=== PATIENT | male | born 1940 | race Caucasian/White ===

== ENCOUNTER → 2017-07-23 10:39 | Outpatient (CLI) | payer MEDICARE, OTHER, SELFPAY ==
[2017-07-23 12:54] LABS: Add Manual Diff / Slide Review NO; Basophils Percent Auto 1.7 % (0-2); Eosinophils Percent Auto 2.7 % (2-4); Hematocrit 39.5 % (41-53); Hemoglobin 13.9 g/dL (13.5-17.5); Lymphocytes Percent Auto 43.1 % (25-40); Mean Corpuscular HGB Conc 35.1 % (30-36); Mean Corpuscular Hemoglobin 37.7 PG (26-34); Mean Corpuscular Volume 107.3 fL (80-100); Monocytes Percent Auto 3.8 % (3-14); Neutrophils Absolute Auto 1600 /uL (3000-5900); Neutrophils Percent Auto 48.7 % (50-75); Platelet Count 229 X10^3/uL (150-400); Red Blood Cell Count 3.68 X10^6/uL (4.5-5.9); Red Cell Distribution Width 14.1 % (11.6-14.8); White Blood Cell Count 3.4 X10^3/uL (4.5-11.0)
[2017-07-23 13:26] LABS: Alanine Aminotransferase 32 IU/L (21-72); Albumin 4.6 g/dL (3.5-5.0); Albumin Globulin Ratio 1.6 (1.0-2.8); Alkaline Phosphatase 91 U/L (38-126); Aspartate Aminotransferase 17 IU/L (17-59); BUN Creatinine Ratio 16.4 (6-22); Bilirubin Total 0.8 mg/dL (0.2-1.3); Calcium 9.7 mg/dL (8.4-10.2); Estimated Glomerular Filt Rate 49.4 mL/min (>60); Globulin 2.9 g/dL (1.7-4.1); Glucose 95 mg/dL (80-110); HEMOLYSIS < 15 (0-50); Potassium 5.2 mmol/L (3.4-5.1); Sodium 143 mmol/L (137-145); Total Protein 7.5 g/dL (6.3-8.2)
== END ==
PROVIDERS: Family Provider Internal Medicine; PCP Family Medicine; Visit Provider Nurse Practitioner Gerontology
DX: D47.3 Essential (hemorrhagic) thrombocythemia (principal)
CPT/HCPCS: 36415; 80053; 85025

== ENCOUNTER → 2017-10-06 10:30 | Outpatient (CLI) | payer MEDICARE, OTHER, SELFPAY ==
[2017-10-06 11:20] LABS: Alanine Aminotransferase 48 IU/L (21-72); Albumin Globulin Ratio 1.7 (1.0-2.8); Alkaline Phosphatase 93 U/L (38-126); Aspartate Aminotransferase 25 IU/L (17-59); BUN Creatinine Ratio 17.3 (6-22); Bilirubin Total 0.6 mg/dL (0.2-1.3); Blood Urea Nitrogen 26 mg/dL (9-20); Calcium 9.2 mg/dL (8.4-10.2); Carbon Dioxide 26 mmol/L (22-32); Chloride 108 mmol/L (98-107); Estimated Glomerular Filt Rate 45.6 mL/min (>60); Globulin 2.4 g/dL (1.7-4.1); Glucose 108 mg/dL (80-110); HEMOLYSIS < 15 (0-50); Potassium 4.2 mmol/L (3.4-5.1); Sodium 144 mmol/L (137-145); Total Protein 6.4 g/dL (6.3-8.2)
[2017-10-06 11:31] LABS: Hematocrit 28.2 % (41-53); Mean Corpuscular HGB Conc 35.5 % (30-36); Mean Corpuscular Hemoglobin 39.6 PG (26-34); Mean Corpuscular Volume 111.4 fL (80-100); Platelet Count 75 X10^3/uL (150-400); Red Blood Cell Count 2.53 X10^6/uL (4.5-5.9); Red Cell Distribution Width 15.4 % (11.6-14.8)
[2017-10-06 11:32] LABS: Add Manual Diff / Slide Review YES; White Blood Cell Count 1.3 X10^3/uL (4.5-11.0)
[2017-10-06 12:03] LABS: Macrocytosis 2+; Neutrophils Absolute Manual 182 /uL (3000-5900); Total Cells Counted 50
== END ==
PROVIDERS: Nurse Practitioner Gerontology; Family Provider Internal Medicine; PCP Family Medicine; Visit Provider Internal Medicine Hematology & Oncology
DX: D47.3 Essential (hemorrhagic) thrombocythemia (principal)
CPT/HCPCS: 36415; 80053; 85025

== ENCOUNTER → 2017-10-08 13:49 | Outpatient (CLI) | payer MEDICARE, OTHER, SELFPAY ==
--- NOTE | 2017-10-08 | DI.ECHO.S_ITS ---
[facility] +---------+ : : [address] : : : : [address]. : : : : [place], : : : : [place] [id number] : : : : Phone: [phone] + Replaced by [id number] Echocardiogram Report + + :Name: JERSEY JASMINE Study Date: 10/08/2017 Height: 69 in : :[facility] Exam Location: [facility] Weight: 240 lb : : Gender: Male BSA: 2.2 m2 : :: 1940 Age: 76 yrs BP: 142/80 mmHg: :Reason For Study: Thrombocytopenia : : Performed By: Edith Mackey : :Referring: [email or web address] : + + Interpretation Summary 1) Mildly enlarged left ventricle with normal systolic function (EF about 55%). 2) There is basal posterolateral wall hypokinesis. 3) Normal right ventricular size and function. 4) There is mild to moderate aortic regurgitation. 5) There is mild to moderate mitral regurgitation. 6) The right ventricular systolic pressure is estimated at 25 mmHg assuming a right atrial pressure of 3 mm Hg. 7) The aortic root is mildly dilated at 4.3cm and the ascending aorta is mildly enlarged at 4.2cm. 8) Compared to the Echo done 10/23/2016, no significant change when compared visually. Procedure: A two-dimensional transthoracic echocardiogram with color flow and Doppler was performed. The study quality was technically adequate. Comparison is made with the echocardiogram of 10/23/2016. The patient was in normal sinus rhythm during the exam. Left Ventricle: The left ventricle is mildly dilated. Left ventricular wall thickness is mildly increased. Left ventricular ejection fraction is estimated to be 55 +/- 5%. There is basal posterolateral wall hypokinesis. Right Ventricle: The right ventricle is normal in size and function. Atria: The left atrium is severely dilated. The right atrium is mild to moderately dilated. The interatrial septum is intact with no evidence for an atrial septal defect. Mitral Valve: The mitral valve is normal in structure and function. There is mild to moderate mitral regurgitation. Aortic Valve: The aortic valve is trileaflet. The aortic valve opens well. There is mild to moderate aortic regurgitation. There is an eccentric jet of aortic insufficiency directed against the anterior mitral leaflet. Tricuspid Valve: The tricuspid valve leaflets are thin and pliable. There is mild tricuspid regurgitation. The right ventricular systolic pressure is estimated at 25 mmHg assuming a right atrial pressure of 3 mm Hg. Pulmonic Valve: The pulmonic valve is not well seen, but is grossly normal. There is a trace or physiologic amount of pulmonic regurgitation. Great Vessels: The aortic root is mildly dilated. The ascending aorta is mildly enlarged. The aortic arch is mildly enlarged. The IVC is of normal diameter and collapses greater than 50% with a sniff. This suggests a low right atrial pressure of 3 mm Hg. Pericardium/ Pleura There is no pericardial effusion. There is an anterior echo-free space consistent with a fat pad. There is no pleural effusion. MMode/2D Measurements & Calculations LVIDd: 6.0 cm AoV Openin.2 cm LVIDs: 3.9 cm LVOT diam: 2.7 cm IVSd: 0.91 cm Ao root diam: 4.3 cm LVPWd: 1.3 cm asc Aorta Diam: 4.2 cm LV galvin. diameter/BSA (cm/m^2): 2.7 Ao Arch Diam (Prox Trans): 3.8 cm LV sys. diameter/BSA (cm/m^2): 1.8 FS: 34.5 % EPSS: 2.1 cm LA A2 area: 35.1 cm2 RA long axis: 5.2 cm LA A4 area: 34.3 cm2 RA area: 14.7 cm2 LA length (vol): 7.1 cm RA vol: 35.3 ml LA vol: 143.9 ml RA : 15.8 ml/m2 LA vol index: 64.5 ml/m2 TAPSE: 2.4 cm Doppler Measurements & Calculations Ao V2 max: 108.8 cm/sec MV E max ezio: 54.7 cm/sec Ao V2 mean: 75.0 cm/sec MV A max ezio: 55.1 cm/sec Ao V2 VTI: 23.1 cm MV E/A: 0.99 Ao max P.9 mmHg Med Peak E' Ezio: 6.1 cm/sec Ao mean P.5 mmHg E/E' med: 9.0 Lat Peak E' Ezio: 9.2 cm/sec E/E' lat: 6.0 E/e' average: 7.5 MV dec time: 0.27 sec TR max ezio: 236.3 cm/sec TR max P.3 mmHg PA V2 max: 71.0 cm/sec PA V2 mean: 42.5 cm/sec PA mean P.88 mmHg PA pr(Accel): 24.1 mmHg Reading Physician:05:05 PM
== END ==
PROVIDERS: PCP Family Medicine; Visit Provider Internal Medicine Hematology & Oncology
DX: I08.3 Combined rheumatic disorders of mitral, aortic and tricuspid valves (principal); D69.6 Thrombocytopenia, unspecified
CPT/HCPCS: 93306

== ENCOUNTER → 2017-10-13 10:52 | Outpatient (CLI) | payer MEDICARE, OTHER, SELFPAY ==
[2017-10-13 11:35] LABS: Hemoglobin 11.4 g/dL (13.5-17.5); Mean Corpuscular HGB Conc 35.7 % (30-36); Mean Corpuscular Hemoglobin 39.6 PG (26-34); Mean Corpuscular Volume 110.9 fL (80-100); Platelet Count 65 X10^3/uL (150-400); Red Blood Cell Count 2.89 X10^6/uL (4.5-5.9); Red Cell Distribution Width 15.4 % (11.6-14.8)
[2017-10-13 11:39] LABS: White Blood Cell Count 1.7 X10^3/uL (4.5-11.0)
[2017-10-13 11:43] LABS: HEMOLYSIS < 15 (0-50); Iron 237 ug/dL (49-181)
[2017-10-13 11:54] LABS: Percent Iron Saturation 77 % (20-50); Total Iron Binding Capacity 307 ug/dL (261-462); Transferrin 238 mg/dL (206-381)
[2017-10-13 12:11] LABS: Macrocytosis 2+; Neutrophils Absolute Manual 136 /uL (3000-5900); Total Cells Counted 50
[2017-10-13 12:49] LABS: Folate 19.8 ng/mL (2.76-20.0); Vitamin B12 > 1000 pg/mL (239-931)
--- NOTE | 2017-10-26 13:41 | ONC.NAV ---
Description: Disabled Parking Permit Activity: Completed a disabled parking permit for pt, Nuria Hubbard signed. Will send to pt in the mail.
--- NOTE | 2017-12-22 14:54 | ONC.NAV ---
*Sent bereavement card.
== END ==
PROVIDERS: Family Provider Internal Medicine; PCP Family Medicine; Visit Provider Family Medicine
DX: D53.9 Nutritional anemia, unspecified (principal); R53.83 Other fatigue
CPT/HCPCS: 36415; 82607; 82746; 83540; 83550; 84443; 85025

== ENCOUNTER → 2017-11-05 12:09 | Outpatient (CLI) | payer MEDICARE, OTHER, SELFPAY ==
--- NOTE | 2017-11-05 12:11 | DI.RAD.S_ITS ---
PROCEDURE: IR PICC W FLUORO GUIDE INDICATIONS: PICC LINE COMPARISON: None. FINDINGS: PICC was placed by the intravenous therapy team from the left side. Fluoroscopic spot film demonstrates tip of PICC in the distal SVC. IMPRESSION: Tip of PICC lies within the distal SVC. Dictated by: Carlos Manuel Mosley M.D. on 11/05/2017 at 13:45 Approved by: Carlos Manuel Mosley M.D. on 11/05/2017 at 13:46
== END ==
PROVIDERS: Family Provider Internal Medicine; PCP Family Medicine; Visit Provider Internal Medicine Hematology & Oncology
DX: Z45.2 Encounter for adjustment and management of vascular access device (principal)
CPT/HCPCS: 36569; 77001

== ENCOUNTER 2017-11-22 11:00 | Oncology outpatient (ONC) | payer MEDICARE, OTHER, SELFPAY ==
[2017-07-28 14:49] VITALS: BP 116/67; PULSE 61; RESP 18; TEMP 36; O2SAT 99
--- NOTE | 2017-07-28 15:36 | ONC.APRN.PN ---
Assessment and Plan (1) Essential thrombocythemia Onset Date: 12/03/15 Current visit: No Status: None 07/28/17 15:43 Trenton is a 76-year-old male who we follow in this clinic for essential thrombocytosis, CARINA 2 positive. Platelets have been quite stable over the last year or so on hydroxyurea 500 mg once daily. Platelets today 229. Continue hydroxyurea 500 mg once daily. We may be able to decrease dose. I will have him return in 3 months time to follow up with 1 of our physicians. Also repeat CBC, CMP. He also has history of B12 and folic acid deficiency. He does take supplements. We will also check a B12. In regards to abdominal discomfort this is getting better, he has appt with GI in [place] in a week or so. - Time Spent with Patient 35 mins PN -Subjective Interval history: Trenton is a 76-year-old male who carries a diagnosis of essential thrombocytosis, CARINA 2 positive. Platelets have been stable on 500 mg of hydroxyurea daily for the last year or so. He initially presented in 2004 with a platelet count of over 1 million. Trenton presents for routine 3 month follow-up today. He has no new complaints on exam today aside from some abdominal discomfort which she had approximately 1 year ago. No clear diagnosis. He has an upcoming appointment with GI specialist in [place]. He was hospitalized last year with a similar complaints, without clear etiology. No exam today aside from abd discomfort he reports overall feeling fine. He had some constipation however that resolved with prune juice now having normal BM's the last few days. No blood in stool. No headaches, no change in appetite specifically early satiety. Activity tolerance is unchanged. No skin changes, lesions. No nausea. Still taking hydroxy urea 500 mg once daily. Past Medical History The patient's past medical history is significant for: 1. Essential thrombocytosis: 2004. Original diagnostic workup and treatment while a resident of [facility]. Patient had been on anagrelide 1 mg daily since 2004. Subsequently transferred care on 10/02/2014 to [facility]. Diagnosis: 10/03/2014. Peripheral blood confirming JAK2 mutation. 10/09/2014. Bone marrow biopsy with aspirate. Hypercellular marrow at 75% with megakaryocyte hyperplasia. No microscopic findings to suggest dysplasia. 1+ fibrosis also noted. No evidence of CML based on BCR-ABL. PCR assay on October 03, 2014, which was also negative. No evidence of polycythemia vera based on the patient's normal hemoglobin and hematocrit. In addition, the patient's MDS FISH panel was negative. Karyotype was normal. Treatment: 2004 - September 2014. Anagrelide 1 mg daily. September 2014 -present. Hydrea thousand milligrams twice a day 2. Anemia, likely due to B12 and folic acid deficiency with levels checked on October 02, 2014, showing a B12 of 387 and a folic acid of 6.8, all within the low normal range. She does drink recreationally. Patient will start B12 and folic acid supplements over the counter. 3. 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 Left ventricle and atrium were markedly dilated. Right ventricular systolic pressure otherwise normal at 27 mmHg. Moderate mitral valve regurgitation was reported. 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 5. Hypercholesterolemia. 6. Hypertension. 7. Chronic renal insufficiency, likely due to long-standing hypertension, with his most recent urinalysis on October 03, 2014, showing no evidence of protein or microscopic abnormalities. Results - Imaging Additional studies: Procedures Non-invasive mechanical ventilation (08/22/14) Home Medications and Allergies Home Medications Medication Instructions Recorded Confirmed Type folic acid 0.4 mg PO QDAY #0 12/03/15 History acetaminophen 650 mg PO Q8HP #0 10/07/16 History aspirin 81 mg PO QDAY #0 10/08/16 History fluticasone 1 spray INTRANASAL QDAY #48 gm 10/26/16 Rx atorvastatin [Lipitor] 40 mg PO HS #90 tab 01/12/17 Rx carvedilol [Coreg] 25 mg PO BID #180 tab 04/16/17 Rx hydroxyurea [Hydrea] 500 mg PO Q DAY #90 cap 05/04/17 Rx furosemide 20 mg PO Q DAY #90 tab 06/10/17 Rx amlodipine 10 mg tablet 10 mg PO QDAY #90 tab 07/08/17 Rx clonazepam 1 mg tablet 1 mg PO HS #90 tab 07/08/17 Rx Allergies Allergy/AdvReac Type Severity Reaction Status Date / Time oxycodone [OXYCODONE] Allergy Unknown HALLUCINATI Unverified 06/09/17 12:26 ONS tramadol [TRAMADOL] Allergy Unknown Unverified 06/09/17 12:26 Exam Vital signs: Last Vital Signs Temp 96.8 F L 07/28/17 14:49 Pulse 61 07/28/17 14:49 Resp 18 07/28/17 14:49 BP 116/67 07/28/17 14:49 Pulse Ox 99 07/28/17 14:49 Narrative: well appearing, non toxic appearing - Constitutional positive no acute distress - Routine HEENT Exam Head: Present: normocephalic ENT: Present: mucous membranes moist - Routine Neck Exam Present: supple. Absent: lymphadenopathy - Routine Respiratory Exam Present: Clear to auscultation bilaterally - Routine Cardiovascular Exam Present: RRR - Routine Abdominal Exam Present: soft, normoactive bowel sounds. Absent: tenderness, distended, rebound, guarding, organomegaly, mass Palpation/Percussion: Absent: hepatomegaly, splenomegaly, fluid waves - Routine Extremities Exam Absent: clubbing, edema, calf tenderness - Routine Skin Exam Present: intact, normal turgor. Absent: cyanosis, petechiae - Routine Neurological Exam Present: alert, oriented X3
[2017-10-07 11:59] VITALS: BP 118/64; PULSE 66; RESP 15; TEMP 36.7; O2SAT 98
--- NOTE | 2017-10-07 12:32 | ONC.PN ---
Assessment and Plan (1) Pancytopenia Problem details: Patient reported that he has no prior history of low blood counts. However, his white cell count from yesterday was 1.3, the hemoglobin level 10.0 and platelet count 75. Patient's absolute neutrophil count 1.82. Clinically no evidence of infection. Current visit: Yes Status: Chronic 10/07/17 12:36 I had a long discussion with the patient and patient's . I talked with him that there are variety of different etiologies for pancytopenia. The most common is new medication. Patient and patient's both said that he has not taken any new medications either prescription or over the counter. Next I talked with them that the possibility of evolvement of his underlying essential thrombocytosis. I explained to them that essential thrombocytosis with time sometimes can evolve into myelofibrosis or acute leukemia. I talked with them that I will have him come back next week and we will repeat the CBC. If it is persistently low, I will proceed with bone marrow aspiration and biopsy. I will see the patient after the bone marrow aspiration and biopsy results are available. Meanwhile I highly recommend that we hold the treatment with Hydrea. 10/07/17 18:13 (2) Essential thrombocythemia Onset Date: 12/03/15 Current visit: No Status: Chronic 10/07/17 12:38 At present, the patient is taking Hydrea 500 mg once a day. Patient has tolerated well. However patient has developed relatively new onset of pancytopenia. Since he has been on 500 mg once a day for such a long time, I am doubtful that the new development of pancytopenia is related the use of the Hydrea. However I would recommend that we hold the Hydrea for now until after the evaluation with bone marrow aspiration and biopsy. 10/07/17 18:16 (3) Shortness of breath on exertion Current visit: Yes Status: Chronic 10/07/17 12:40 As far as the shortness of breath is concerned, he has a history of cardiomyopathy. His hemoglobin level is 10.0 which cannot fully account for the clinical symptoms. I am highly suspicious that he might have cardiac issues especially congestive heart failure. Patient actually has a past medical history of flash pulmonary edema. On my physical examination patient's lung sounds clear to me today. I will proceed with the echocardiogram to evaluate the cardiac function. I will ask the patient to try to get to his grain unloader machine as early as possible. 10/07/17 18:17 PN -Subjective Interval history: Interim event patient came in here today accompanied by his . The patient reported significant exertional shortness of breath. He said he is fine when he is sedentary and he is not moving around. According to his , even on a gradual slope, he is having problems. His energy level has been low. Patient denies any bleeding events. He denies chest pain. He denies nausea or vomiting. He reports decreasing appetite during the interim, but his weight actually is going up. Patient reports no skin ulcers and no skin changes. Patient recalled that about a year ago patient had a rectal bleeding and he underwent colonoscopy as well as endoscopy. No active bleeding sites were identified. Patient does recall that he has diverticulosis. Patient has past medical problems including arthritis, chronic kidney disease stage 3 from use of naproxen, cardiomyopathy likely from the viral infection as well as hypertension and hyperlipidemia. Patient has not had any cardiac workup for almost a year. His grain unloader machine has left the area. Patient also has not had any bone marrow examination for more than a year. - Patient Self-Reported Symptoms SR Constitution: Fatigue/Malaise SR respiratory issues: Shortness of breath SR Cardiovascular issues: Shortness of breath with activity or lying flat, Extreme swelling, Dizzy/lightheaded Results - Imaging Additional studies: Procedures Non-invasive mechanical ventilation (08/22/14) Home Medications and Allergies Home Medications Medication Instructions Recorded Confirmed Type folic acid 0.4 mg PO QDAY #0 12/03/15 10/07/17 History acetaminophen 650 mg PO Q8HP #0 10/07/16 10/07/17 History aspirin 81 mg PO QDAY #0 10/08/16 10/07/17 History fluticasone 1 spray INTRANASAL QDAY #48 gm 10/26/16 10/07/17 Rx furosemide 20 mg PO Q DAY #90 tab 06/10/17 10/07/17 Rx amlodipine 10 mg tablet 10 mg PO QDAY #90 tab 07/08/17 10/07/17 Rx clonazepam 1 mg tablet 1 mg PO HS #90 tab 07/08/17 10/07/17 Rx hydroxyurea 500 mg capsule 500 mg PO Q DAY #90 cap 08/24/17 10/07/17 Rx atorvastatin [Lipitor] 40 mg PO HS #90 tab 09/07/17 10/07/17 Rx carvedilol [Coreg] 25 mg PO BID #180 tab 10/04/17 10/07/17 Rx Allergies Allergy/AdvReac Type Severity Reaction Status Date / Time oxycodone [OXYCODONE] Allergy Unknown HALLUCINATI Verified 08/24/17 08:52 ONS tramadol [TRAMADOL] Allergy Unknown Verified 08/24/17 08:52 Exam Vital signs: Last Vital Signs Temp 98.1 F 10/07/17 11:59 Pulse 66 10/07/17 11:59 Resp 15 10/07/17 11:59 BP 118/64 10/07/17 11:59 Pulse Ox 98 10/07/17 11:59 General patient is slightly obese, accompanied by his to the clinic, pleasant and cooperative. HEENT normocephalic atraumatic. Anicteric sclera. Extraocular muscle movement intact. Pupils are round equal and reactive to light and accommodations. Neck supple no palpable lymphadenopathy no palpable thyromegaly. Respiratory: clear o auscultation no wheezes. No crackles on today's examination. Cardiovascular: Regular rate and rhythm on examination. There is a opening clinic. No murmurs gallops or rubs. Abdomen: Soft, nontender, no palpable hepatomegaly, no palpable splenomegaly. Lower extremities: No pitting edema on examination today Neurologic exam: Patient is awake and alert and oriented x3 colon, nonfocal on examination Narrative: General: Patient appears slightly obese, not in any acute respiratory distress, he is pleasant and cooperative. HEENT: Normocephalic, atraumatic, anicteric sclera, EOMI, pupils are round equal and reactive light and accommodations. Neck: Supple, no palpable adenopathy, no palpable thyromegaly. Respiratory: Clear to auscultation, no wheezes. Cardiovascular: Regular rate and rhythm, S1-S2 normal, no murmurs, gallops, or rubs. Abdomen: Soft, nontender, no palpable organomegaly. Lower extremities: No appreciated pitting edema. Neurological exam: Patient is awake and alert and oriented x3, nonfocal on my examination.
--- NOTE | 2017-10-11 | PATH_ITS ---
[facility] Accession Number: [id number] . 01 Material submitted: . PART A: BONE MARROW BIOPSY AND ASPIRATION PART B: BONE MARROW BIOPSY AND ASPIRATION PART C: BONE MARROW BIOPSY AND ASPIRATION . 01 Clinical history: . Patient with history of essential thrombocythemia (ET) with hydrea therapy; now with pancytopenia . 01 Diagnosis: BONE MARROW, CORE BIOPSY, ASPIRATE, AND CLOT SECTIONS: 1. Hypercellular marrow for age (average 70% cellular) with involvement by acute monocytic leukemia (see Comments) 2. No significant marrow reticulin fibrosis (MF 0 out of 3) 3. Thinned bony trabeculae, suggestive of osteopenia . PERIPHERAL BLOOD: 1. Marked absolute neutropenia with 7% circulating blasts and 0.5% circulating promonocytes 2. Moderate thrombocytopenia 3. Mild macrocytic anemia . FLOW CYTOMETRIC ANALYSIS ([id number]): Bone marrow, aspirate: 1. 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 No abnormal B-cell or T-cell population identified . 10/19/2017 . 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 Based on immunohistochemistry performed on the marrow core biopsy (block C1), abnormal myeloid blasts expressing intermediate CD117 and high-level CD33, without CD34, CD15, or CD14, comprise an estimated 45% of the marrow cells; and the abnormal promonocyte population expressing intermediate CD15 and high CD33, without CD34, CD117, or CD14 comprises an additional 35% of the marrow cells. . The AML FISH panel performed on the marrow aspirate is negative for genomic abnormalities with specific probes targeting the PML/PRACHI [t(15;17)], XSZM2T4/RUNX1 (8q21), KMT2A (11q23 or MLL), CBFB, chromosome 5, and chromosome 7 loci. Routine cytogenetic karyotyping also reveals a normal male karyotype in all 20 metaphases analyzed. The complete cytogenetic and FISH results may be referenced in [id number]. Given the molecular information known at this time, the most appropriate AML subclassification of this leukemia would be acute monocytic leukemia. . FLOW CYTOMETRY COMMENTS: . Flow cytometry identifies 40% abnormal myeloid blasts and 39% immature monocytic cells (promonocytes) in this marrow aspirate, which collectively total 79% blast-equivalents. Given the patient's reported history of essential thrombocythemia (ET), this finding is consistent with transformation of the patient's underlying myeloproliferative disorder to an acute myeloid leukemia (AML) with monocytic differentiation, although correlation with the concurrently submitted marrow morphology is also recommended. The abnormal myeloid blasts express intermediate-high CD117, CD13, and CD38; high CD33; variable intermediate-high HLA-DR; low-intermediate CD45; and low to absent CD64; without expression of CD34, CD14, CD15, CD16, or CD11b. The immature monocytic forms/promonocytes express high-level CD64 and CD33; intermediate-high CD38, HLA-DR, CD45, and CD15; and intermediate CD11b; without CD34, CD117, CD14, or CD13. A small subset of more mature monocytic cells are also identified, which express high-level CD64, CD33, and CD11b; and variable intermediate-high CD14; without CD34 or CD117. Only rare mature granulocytes are present in the background. Rare normal CD34+ myeloid blasts are also identified in the background. The immunophenotype of the abnormal myeloid blasts argues against an acute promyelocytic leukemia. As requested, portions of the fresh marrow aspirate will be forwarded for routine cytogenetic karyotyping and an AML FISH panel, the results of which will be reported separately. There is no evidence of involvement by a B-cell or T-cell non-Hodgkin lymphoma. . These findings were discussed with Dr. Margot Heard on 10/12/2017 at 4:45 PM PST. . Flow cytometric analysis after lysis of the erythroid elements indicates that the viable leukocytes include 10% lymphocytes, 7% mature monocytes, 3% granulocytes, 39% promonocytes, 40% abnormal CD117+ myeloid blasts (79% total blast equivalents), and 0.4% normal CD34+ myeloid blasts. The lymphocytes are comprised of 7% B-cells, 87% T-cells, and 6% NK-cells. The mature B-cells have a normal kappa:lambda ratio of 1.5. The T-cells have a normal CD4:CD8 ratio of 1.6. . . 01 Electronically signed: . Annalise Shafer MD, Pathologist NPI- [id number] . 01 Gross description: . Received three formalin-filled containers, each labeled with the patient's name. No sources are labeled on the containers: . A. In a container arbitrarily designated A, the specimen consists of a 3.5 x 2.0 x 2.0 aggregate of clotted blood. The specimen is sectioned and submitted in its entirety in cassettes A1-A9. B. In a container arbitrarily designated B, the specimen consists of approximately a 0.5 cc aggregate of blood, which is filtered and entirely submitted in cassette B. C. In a container arbitrarily designated C, the specimen consists of a 0.3 cm in diameter by 2.0 cm in length portion of core and clotted blood, entirely submitted in cassette C and will be placed in Decal for softening. (DC:[id number]) /FRR . 01 Microscopic: . CORE BIOPSY AND CLOT SECTION: . H/E-stained sections of the bone marrow core biopsy (block C1) reveal an intact, well-sampled core of trabecular bone and marrow with variable cellularity ranging from 15-85%, and an average cellularity estimated at 70%. Many of the bony trabeculae are thinned. The marrow exhibits an atypical expansion of immature cells with round to ovoid nuclei as well as a monotonous population of mononuclear cells with indented and/or convoluted nuclei. These atypical cell populations form confluent sheets in both paratrabecular regions and in the marrow interstitium. Many of the atypical cells have one or more nucleoli. There is evidence of background erythropoiesis and megakaryopoiesis, but maturing myeloid forms are distinctly reduced. Megakaryocytes vary in size and form scattered loose clusters of up to 12 megakaryocytes. Some of the megakaryocytes appear hyperlobate. H/E-stained sections of the clot (blocks A1-A9) reveal abundant blood clot with embedded cellular marrow particles reflective of the cellular portion of the core biopsy. H/E sections of the particle prep (block B1) also contain scattered cellular marrow particles reflective of the core biopsy. No lymphoid aggregates are identified in the core biopsy, but rare small, well-circumscribed lymphoid aggregates are seen in the clot section blocks A5 and A8. . ASPIRATE SMEARS AND TOUCH PREPARATION: . The aspirate smears are pauciparticulate, but adequately cellular for evaluation. One touch preparation of the core biopsy is also received, which is hemodilute and thickly prepared, making visualization of the cells present difficult. The most prominent cell population on the aspirate smears is an abnormal blast population with round nuclei, nucleoli, and a small to moderate amount of cytoplasm. A subset of abnormal immature monocytic forms (promonocytes) is also present. More mature monocytic cells and maturing granulocytic forms are reduced in number. Eosinophilic precursors and rare promyelocytes/myelocytes comprise the majority of granulocytic cells on the smears. The erythroid precursors display complete maturation without significant dysplastic or megaloblastoid features. Many of the megakaryocytes on the aspirate smears exhibit hyperlobate nuclei. Rare dysplastic megakaryocytes with multiple, widely-spaced nuclei are identified. A few immature megakaryocytes are also seen. Lymphocytes and plasma cells are present in normal numbers, and have no significant cytologic atypia. A differential count of 300 marrow hematopoietic cells from the aspirate smears reveals 51% blasts, 18% abnormal immature monocytic forms (promonocytes), 9% maturing myeloid precursors (including eosinophils), 11.7% erythroid precursors, and 10.3% lymphocytes. . SPECIAL STAINS: . A reticulin stain performed on the biopsy (block C1) reveals no significant increase in marrow reticulin fibrosis (WHO fibrosis grade 0 of 3). . The aspirate smear upon which an iron stain was performed is essentially aparticulate; rare sideroblasts are identified, but no ring sideroblasts are identified among the normoblasts present. Iron stains performed on the clot section A1 and the particle prep B1 reveal an adequate amount of stainable marrow storage iron. . IMMUNOHISTOCHEMISTRY*: . Select immunohistochemical studies were performed on the core biopsy (C1), with appropriate positive and negative controls, to help enumerate the cell lineages. An abnormal population of blasts with expression of intermediate-intensity CD117 and strong CD33, without CD34, CD15, or CD14, comprises an estimated 45% of the marrow cells. The CD117+ blasts comprise a majority of the abnormal immature cells in the paratrabecular regions. In addition, an abnormal population of mononuclear cells with expression of intermediate CD15 and strong CD33, without CD34, CD117, or CD14, comprises an additional 35% of the marrow cells, and corresponds to the abnormal immature monocyte (promonocyte) population. A small subset of granulocytic cells with strong expression of CD15 comprises 3-4% of the marrow cells. A small subset of mature monocytes with expression of high-level CD14 also comprises 3-4% of the marrow cells. An immunostain for CD34 highlights marrow vessels, but CD34+ blasts comprise less than 1% of the marrow cells. CD71+ erythroid precursors comprise about 10-15% of the marrow cells. An immunostain for vWF highlights the megakaryocytes. . PERIPHERAL BLOOD: . A Fisher-stained peripheral blood smear reveals the leukocytes to be at least moderately decreased in number, and a differential count of 200 cells reveals 7.5% neutrophils, 81% lymphocytes, 7% blasts, 0.5% abnormal immature monocytic forms (promonocytes), 3% eosinophils, and 1% basophils. Per the CBC indices, the erythrocytes are mildly decreased in number and volume, and macrocytic. There is no significant polychromasia and minimal erythrocyte anisopoikilocytosis, with rare teardrop forms and elliptocytes seen. Platelets are moderately decreased in number, but those present are generally well-granulated. . * Technical note: These tests and their performance characteristics have been determined by [facility]. They have not been cleared or approved by the U.S. Food and Drug Administration. The FDA has determined that such clearance or approval is not necessary. These tests are used for clinical purposes, and should not be regarded as investigational or for research. . Note also that the technical component of the following IHC studies was performed at [email or web address], with interpretation by Dr. Huong Shafer at [facility]: CD33, CD14. . 01 Pathologist provided ICD-10: C95.90, D61.818, Z85.79 . 01 CPT . 387649, 199496, 217287, 774235, 557171, 810130, 600694, [id number], [id number], Q38281 Performed at: [address], [place], [place] [id number] MD Lucien Gar MD Phone: [phone]
[2017-10-11 09:05] LABS: Hemoglobin 11.4 g/dL (13.5-17.5); Mean Corpuscular HGB Conc 35.5 % (30-36); Mean Corpuscular Hemoglobin 39.7 PG (26-34); Mean Corpuscular Volume 111.7 fL (80-100); Platelet Count 71 X10^3/uL (150-400); Red Blood Cell Count 2.86 X10^6/uL (4.5-5.9); Red Cell Distribution Width 15.4 % (11.6-14.8)
[2017-10-11 09:09] LABS: Add Manual Diff / Slide Review YES; White Blood Cell Count 1.6 X10^3/uL (4.5-11.0)
[2017-10-11 09:18] LABS: Alanine Aminotransferase 30 IU/L (21-72); Albumin 4.5 g/dL (3.5-5.0); Albumin Globulin Ratio 1.7 (1.0-2.8); Alkaline Phosphatase 92 U/L (38-126); Aspartate Aminotransferase 16 IU/L (17-59); Bilirubin Total 0.7 mg/dL (0.2-1.3); Blood Urea Nitrogen 27 mg/dL (9-20); Calcium 9.6 mg/dL (8.4-10.2); Carbon Dioxide 29 mmol/L (22-32); Chloride 104 mmol/L (98-107); Estimated Glomerular Filt Rate 45.6 mL/min (>60); Globulin 2.7 g/dL (1.7-4.1); Glucose 128 mg/dL (80-110); HEMOLYSIS < 15 (0-50); Potassium 4.5 mmol/L (3.4-5.1); Sodium 143 mmol/L (137-145); Total Protein 7.2 g/dL (6.3-8.2)
[2017-10-11 09:30] LABS: Neutrophils Absolute Manual 160 /uL (3000-5900); Total Cells Counted 100
[2017-10-11 09:31] LABS: Macrocytosis 2+
--- NOTE | 2017-10-11 10:21 | ONC.PROCEDUR ---
Date of procedure: 10/11/17 Diagnosis: Essential thrombocytosis now with pancytopenia Onc Bone Marrow: bone marrow aspiration(s) Procedure: Informed consent was signed by the patient before all the the procedures. The indications and potential complications were explained to the patient including but not limited to local pain, bleeding, and infection. Patient voiced understanding. Procedure details: Patient was instructed to lie on his right side. Left posterior iliac crest was prepped and sterilized with ChloraPrep per standard procedures. Patient then was draped. After local anesthesia was obtained with injection of lidocaine, bone marrow aspiration needle was inserted without difficulties. I aspirated about 25 cc of bone marrow sample and handed over over the table for progression of slide preparation. Thereafter I inserted the Slingr bone marrow biopsy needle. And I obtained a 3 cm long nice bone marrow sample. I applied pressure briefly to make sure there is no active bleeding. Patient tolerated the procedures well. No immediate complications. I will have the patient come back in about 2 weeks to review the lab results. Patient asked several questions and I answered the questions to the best of my knowledge.
--- NOTE | 2017-10-11 10:24 | P.PCN_ITS ---
Date of procedure: 10/11/17 Diagnosis: Essential thrombocytosis now with pancytopenia Onc Bone Marrow: bone marrow aspiration(s) Procedure: Informed consent was signed by the patient before all the the procedures. The indications and potential complications were explained to the patient including but not limited to local pain, bleeding, and infection. Patient voiced understanding. Procedure details: Patient was instructed to lie on his right side. Left posterior iliac crest was prepped and sterilized with ChloraPrep per standard procedures. Patient then was draped. After local anesthesia was obtained with injection of lidocaine, bone marrow aspiration needle was inserted without difficulties. I aspirated about 25 cc of bone marrow sample and handed over over the table for progression of slide preparation. Thereafter I inserted the [employer] bone marrow biopsy needle. And I obtained a 3 cm long nice bone marrow sample. I applied pressure briefly to make sure there is no active bleeding. Patient tolerated the procedures well. No immediate complications. I will have the patient come back in about 2 weeks to review the lab results. Patient asked several questions and I answered the questions to the best of my knowledge.
--- NOTE | 2017-10-25 14:26 | ONC.PN ---
Assessment and Plan (1) Acute myeloid leukemia Current visit: Yes Status: Acute I explained to the patient and patient's that based on the initial pathology report, patient's previous essential thrombocytosis has already gone transformation. In other words the essential thrombocytosis has evolved into acute myeloid leukemia. I briefly touched base with them about the diagnosis of acute myeloid leukemia. I pointed out to them it is an aggressive rapidly progressing hematological malignancy. Generally speaking, patient will need a intensive chemotherapy followed by possibly bone marrow transplant. Even with intensive treatment, patient's prognosis is somewhat guarded. I encouraged patient to follow up at [facility] for more information and also to see if there is any chance of participating in the clinical trials. (2) Pancytopenia Current visit: Yes Status: Chronic Patient will need continued monitoring of the white cell he red blood cells and platelets. Patient will need blood transfusion on as needed basis. The pancytopenia clearly is related to the new transformation of essential thrombocytosis to acute myeloid leukemia. (3) Essential thrombocythemia The essential thrombocytosis has already transformed. Therefore I recommend that we stop taking the hydroxyurea. Patient will need to follow up at [facility] for acute myeloid leukemia. (4) Shortness of breath on exertion Current visit: Yes Status: Chronic The symptoms clearly is related to the transformation of the central thrombocytosis to acute myeloid leukemia. The hemoglobin hematocrit level above 8/24 and I will continue monitor and will transfuse on as needed basis. - Time Spent with Patient The plan is to have patient come [facility] I talked with the patient that I am willing to help. PN -Subjective Interval history: INTERIM EVENTS On October 11, 2017, patient underwent bone marrow aspiration and biopsy. I would on the same day [facility] that the initial hematopathology examination indicated that the patient has diagnosis of acute myeloid leukemia. Further testing was pending at the time. Because of the new findings, I have already set up appointment for the patient to be evaluated at [facility] for treatment of acute myeloid leukemia. Patient presents here today for scheduled follow-up. Patient as a matter of fact has already seen Dr. Osmany Hardy at the [facility]. Further follow-up visit was scheduled for October 29. - Patient Self-Reported Symptoms SR Constitution: Fatigue/Malaise SR respiratory issues: Shortness of breath SR Cardiovascular issues: Shortness of breath with activity or lying flat, Extreme swelling, Dizzy/lightheaded - Additional ROS All systems PM: reviewed and no additional remarkable complaints except as stated Results - Labs Labs from October 25, 2017 WBC 2.1, hemoglobin 10.5, hematocrit 28.8, platelets 49, sodium 145, potassium 4.7, chloride 108, BUN 25, creatinine 1.5, glucose level 100, calcium 9.3, total bilirubin 0.5, AST 17, ALT 31, alk-phos 111, total protein 6.7, albumin 4.1, globulin 2.6, - Imaging Additional studies: Procedures Non-invasive mechanical ventilation (08/22/14) Home Medications and Allergies Home Medications Medication Instructions Recorded Confirmed Type acetaminophen 650 mg PO Q8HP #0 10/07/16 10/07/17 History furosemide 20 mg PO Q DAY #90 tab 06/10/17 10/07/17 Rx clonazepam 1 mg tablet 1 mg PO HS #90 tab 07/08/17 10/07/17 Rx carvedilol [Coreg] 25 mg PO BID #180 tab 10/04/17 10/07/17 Rx amlodipine 5 mg PO DAILY 11/04/17 11/04/17 History Allergies Allergy/AdvReac Type Severity Reaction Status Date / Time oxycodone [OXYCODONE] Allergy Unknown HALLUCINATI Verified 10/13/17 10:22 ONS tramadol [TRAMADOL] Allergy Unknown Verified 10/13/17 10:22 Exam - Constitutional positive no acute distress, positive average body habitus, positive chronically ill appearing, positive cooperative - Routine HEENT Exam Head: Present: normocephalic, atraumatic Eye: Present: EOMI, PERRL, normal accommodation. Absent: conjunctival icterus ENT: Present: mucous membranes moist - Routine Neck Exam Present: supple. Absent: lymphadenopathy, thyromegaly - Routine Respiratory Exam Present: Clear to auscultation bilaterally. Absent: wheezes, crackles - Routine Cardiovascular Exam Present: RRR, S1, S2. Absent: murmur, gallop, rubs - Routine Abdominal Exam Present: soft, normoactive bowel sounds. Absent: tenderness, distended, organomegaly - Routine Extremities Exam Absent: cyanosis, clubbing, edema - Routine Neurological Exam Present: alert, oriented X3, CN II-XII intact, normal reflexes, normal speech. Absent: sensory deficit, motor deficit - Routine Psychiatric Exam Present: normal affect, normal thought process, cooperative, good insight, good judgment
--- NOTE | 2017-10-25 14:47 | P.PNONC_ITS ---
Assessment and Plan (1) Acute myeloid leukemia Current visit: Yes Status: Acute I explained to the patient and patient's that based on the initial pathology report, patient's previous essential thrombocytosis has already gone transformation. In other words the essential thrombocytosis has evolved into acute myeloid leukemia. I briefly touched base with them about the diagnosis of acute myeloid leukemia. I pointed out to them it is an aggressive rapidly progressing hematological malignancy. Generally speaking, patient will need a intensive chemotherapy followed by possibly bone marrow transplant. Even with intensive treatment, patient's prognosis is somewhat guarded. I encouraged patient to follow up at [facility] for more information and also to see if there is any chance of participating in the clinical trials. (2) Pancytopenia Current visit: Yes Status: Chronic Patient will need continued monitoring of the white cell he red blood cells and platelets. Patient will need blood transfusion on as needed basis. The pancytopenia clearly is related to the new transformation of essential thrombocytosis to acute myeloid leukemia. (3) Essential thrombocythemia The essential thrombocytosis has already transformed. Therefore I recommend that we stop taking the hydroxyurea. Patient will need to follow up at [facility] for acute myeloid leukemia. (4) Shortness of breath on exertion Current visit: Yes Status: Chronic The symptoms clearly is related to the transformation of the central thrombocytosis to acute myeloid leukemia. The hemoglobin hematocrit level above 8/24 and I will continue monitor and will transfuse on as needed basis. - Time Spent with Patient The plan is to have patient come [facility]. I talked with the patient that I am willing to help. PN -Subjective Interval history: INTERIM EVENTS On October 11, 2017, patient underwent bone marrow aspiration and biopsy. I would on the same day [facility] that the initial hematopathology examination indicated that the patient has diagnosis of acute myeloid leukemia. Further testing was pending at the time. Because of the new findings, I have already set up appointment for the patient to be evaluated at [facility] for treatment of acute myeloid leukemia. Patient presents here today for scheduled follow-up. Patient as a matter of fact has already seen Dr. Osmany Hardy at the [facility]. Further follow-up visit was scheduled for October 29. - Patient Self-Reported Symptoms SR Constitution: Fatigue/Malaise SR respiratory issues: Shortness of breath SR Cardiovascular issues: Shortness of breath with activity or lying flat, Extreme swelling, Dizzy/lightheaded - Additional ROS All systems PM: reviewed and no additional remarkable complaints except as stated Results - Labs Labs from October 25, 2017 WBC 2.1, hemoglobin 10.5, hematocrit 28.8, platelets 49, sodium 145, potassium 4.7, chloride 108, BUN 25, creatinine 1.5, glucose level 100, calcium 9.3, total bilirubin 0.5, AST 17, ALT 31, alk-phos 111, total protein 6.7, albumin 4.1, globulin 2.6, - Imaging Additional studies: Procedures Non-invasive mechanical ventilation (08/22/14) Home Medications and Allergies Home Medications Medication Instructions Recorded Confirmed Type acetaminophen 650 mg PO Q8HP #0 10/07/16 10/07/17 History furosemide 20 mg PO Q DAY #90 tab 06/10/17 10/07/17 Rx clonazepam 1 mg tablet 1 mg PO HS #90 tab 07/08/17 10/07/17 Rx carvedilol [Coreg] 25 mg PO BID #180 tab 10/04/17 10/07/17 Rx amlodipine 5 mg PO DAILY 11/04/17 11/04/17 History Allergies Allergy/AdvReac Type Severity Reaction Status Date / Time oxycodone [OXYCODONE] Allergy Unknown HALLUCINATI Verified 10/13/17 10:22 ONS tramadol [TRAMADOL] Allergy Unknown Verified 10/13/17 10:22 Exam - Constitutional positive no acute distress, positive average body habitus, positive chronically ill appearing, positive cooperative - Routine HEENT Exam Head: Present: normocephalic, atraumatic Eye: Present: EOMI, PERRL, normal accommodation. Absent: conjunctival icterus ENT: Present: mucous membranes moist - Routine Neck Exam Present: supple. Absent: lymphadenopathy, thyromegaly - Routine Respiratory Exam Present: Clear to auscultation bilaterally. Absent: wheezes, crackles - Routine Cardiovascular Exam Present: RRR, S1, S2. Absent: murmur, gallop, rubs - Routine Abdominal Exam Present: soft, normoactive bowel sounds. Absent: tenderness, distended, organomegaly - Routine Extremities Exam Absent: cyanosis, clubbing, edema - Routine Neurological Exam Present: alert, oriented X3, CN II-XII intact, normal reflexes, normal speech. Absent: sensory deficit, motor deficit - Routine Psychiatric Exam Present: normal affect, normal thought process, cooperative, good insight, good judgment
[2017-10-25 15:09] LABS: Hematocrit 28.8 % (41-53); Hemoglobin 10.5 g/dL (13.5-17.5); Mean Corpuscular HGB Conc 36.6 % (30-36); Mean Corpuscular Volume 109.2 fL (80-100); Platelet Count 49 X10^3/uL (150-400); Red Blood Cell Count 2.63 X10^6/uL (4.5-5.9); White Blood Cell Count 2.1 X10^3/uL (4.5-11.0)
[2017-10-25 15:53] LABS: Add Manual Diff / Slide Review YES
[2017-10-25 16:00] LABS: Neutrophils Absolute Manual 168 /uL (3000-5900); Nucleated Red Blood Cells 1 #/Diff; Total Cells Counted 50
[2017-10-25 16:01] LABS: Anisocytosis 1+; Macrocytosis 1+; Smudge Cells 1+
[2017-10-25 16:01] LABS: Alanine Aminotransferase 31 IU/L (21-72); Albumin 4.1 g/dL (3.5-5.0); Albumin Globulin Ratio 1.6 (1.0-2.8); Alkaline Phosphatase 111 U/L (38-126); Aspartate Aminotransferase 17 IU/L (17-59); Bilirubin Total 0.5 mg/dL (0.2-1.3); Blood Urea Nitrogen 21 mg/dL (9-20); Calcium 9.3 mg/dL (8.4-10.2); Carbon Dioxide 25 mmol/L (22-32); Chloride 108 mmol/L (98-107); Estimated Glomerular Filt Rate 45.6 mL/min (>60); Globulin 2.6 g/dL (1.7-4.1); Glucose 100 mg/dL (80-110); HEMOLYSIS < 15 (0-50); Potassium 4.7 mmol/L (3.4-5.1); Sodium 145 mmol/L (137-145); Total Protein 6.7 g/dL (6.3-8.2)
[2017-11-04 15:56] LABS: Hematocrit 26.2 % (41-53); Hemoglobin 9.5 g/dL (13.5-17.5); Mean Corpuscular HGB Conc 36.2 % (30-36); Mean Corpuscular Hemoglobin 38.2 PG (26-34); Mean Corpuscular Volume 105.6 fL (80-100); Red Blood Cell Count 2.48 X10^6/uL (4.5-5.9); Red Cell Distribution Width 18.6 % (11.6-14.8); White Blood Cell Count 2.4 X10^3/uL (4.5-11.0)
[2017-11-04 15:59] LABS: Add Manual Diff / Slide Review YES; Platelet Count 28 X10^3/uL (150-400)
--- NOTE | 2017-11-04 15:59 | PC.NURSE ---
Critical lab value from lab, platelet count 28. spray drier, aware.
[2017-11-04 16:08] LABS: Alanine Aminotransferase 34 IU/L (21-72); Albumin Globulin Ratio 1.5 (1.0-2.8); Alkaline Phosphatase 98 U/L (38-126); Aspartate Aminotransferase 27 IU/L (17-59); BUN Creatinine Ratio 15.3 (6-22); Bilirubin Total 0.6 mg/dL (0.2-1.3); Blood Urea Nitrogen 23 mg/dL (9-20); Calcium 9.5 mg/dL (8.4-10.2); Carbon Dioxide 27 mmol/L (22-32); Chloride 108 mmol/L (98-107); Estimated Glomerular Filt Rate 45.6 mL/min (>60); Globulin 2.7 g/dL (1.7-4.1); Glucose 111 mg/dL (80-110); HEMOLYSIS < 15 (0-50); Potassium 4.3 mmol/L (3.4-5.1); Sodium 146 mmol/L (137-145); Total Protein 6.7 g/dL (6.3-8.2)
[2017-11-04 16:51] LABS: Neutrophils Absolute Manual 96 /uL (3000-5900); Total Cells Counted 100
[2017-11-04 16:53] LABS: Anisocytosis 2+; Macrocytosis 1+
[2017-11-04 17:31] VITALS: BP 121/67; PULSE 62; RESP 16; TEMP 36.3; O2SAT 100
--- NOTE | 2017-11-04 18:27 | ONC.PN ---
PN -Subjective Interval history: INTERIM EVENTS This is a 76-year-old gentleman with prolonged history of essential thrombocytosis. Recently he developed pancytopenia. 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 Therefore patient was referred to [facility] for evaluation and management. And on October 29, 2017, patient went back to [facility] again for further discussion. Patient reported that Dr. Hardy talked with him about multiple options including intensive chemotherapy as an inpatient vs pallaitiv care. Patient told me that he has thought about it carefully and he decided he does not want to proceed with the chemotherapy. He would like to proceed with palliative care locally. While at [facility] patient has significant fatigue. Patient said he was basically exhausted and just wiped out. He thought that might be related to the underlying acute myeloid leukemia as well as the traveling from [place] to [place]. At [facility] patient received a blood transfusion and patient said that he had felt great after the blood transfusion. Today he was able to walk into the clinic. In addition at the [facility] patient also was given ranitidine for apparent acid reflux. That also has relieved much of the abdominal pain symptoms and patient is very satisfied. - Patient Self-Reported Symptoms SR Constitution: Fatigue/Malaise SR respiratory issues: Shortness of breath SR Cardiovascular issues: Shortness of breath with activity or lying flat, Extreme swelling, Dizzy/lightheaded - Additional ROS All systems PM: reviewed and no additional remarkable complaints except as stated Home Medications and Allergies Home Medications Medication Instructions Recorded Confirmed Type acetaminophen 650 mg PO Q8HP #0 10/07/16 10/07/17 History furosemide 20 mg PO Q DAY #90 tab 06/10/17 10/07/17 Rx clonazepam 1 mg tablet 1 mg PO HS #90 tab 07/08/17 10/07/17 Rx carvedilol [Coreg] 25 mg PO BID #180 tab 10/04/17 10/07/17 Rx amlodipine 5 mg PO DAILY 11/04/17 11/04/17 History Allergies Allergy/AdvReac Type Severity Reaction Status Date / Time oxycodone [OXYCODONE] Allergy Unknown HALLUCINATI Verified 10/13/17 10:22 ONS tramadol [TRAMADOL] Allergy Unknown Verified 10/13/17 10:22 Exam Vital signs: Last Vital Signs Temp 97.3 F L 11/04/17 17:31 Pulse 62 11/04/17 17:31 Resp 16 11/04/17 17:31 BP 121/67 11/04/17 17:31 Pulse Ox 100 11/04/17 17:31 - Constitutional positive no acute distress, positive average body habitus, positive chronically ill appearing, positive cooperative - Routine HEENT Exam Head: Present: normocephalic, atraumatic Eye: Present: EOMI, PERRL, normal accommodation. Absent: conjunctival icterus ENT: Present: mucous membranes moist - Routine Neck Exam Present: supple, full ROM. Absent: lymphadenopathy, thyromegaly - Routine Respiratory Exam Present: Clear to auscultation bilaterally. Absent: wheezes - Routine Cardiovascular Exam Present: RRR, S1, S2. Absent: murmur, gallop, rubs - Routine Abdominal Exam Present: soft, normoactive bowel sounds. Absent: tenderness, distended, organomegaly - Routine Extremities Exam Absent: cyanosis, clubbing, edema - Routine Back/Spine Exam Back/Spine: Present: full ROM - Routine Skin Exam Present: intact. Absent: cyanosis, erythema - Routine Neurological Exam Present: alert, oriented X3, CN II-XII intact, normal tone, normal speech. Absent: sensory deficit, motor deficit - Routine Psychiatric Exam Present: normal affect, normal thought process, cooperative, good insight, good judgment Results - Labs Laboratory Last Values WBC 2.4 X10^3/uL (4.5-11.0) L 11/04/17 15:41 RBC 2.48 X10^6/uL (4.5-5.9) L 11/04/17 15:41 Hgb 9.5 g/dL (13.5-17.5) L 11/04/17 15:41 Hct 26.2 % (41-53) L 11/04/17 15:41 MCV 105.6 fL (80-100) H 11/04/17 15:41 MCH 38.2 PG (26-34) H 11/04/17 15:41 MCHC 36.2 % (30-36) H 11/04/17 15:41 RDW 18.6 % (11.6-14.8) H 11/04/17 15:41 Plt Count 28 X10^3/uL (150-400) L* 11/04/17 15:41 Neut % (Auto) Not Reportable 11/04/17 15:41 Lymph % (Auto) Not Reportable 11/04/17 15:41 [place] % (Auto) Not Reportable 11/04/17 15:41 Eos % (Auto) Not Reportable 11/04/17 15:41 Baso % (Auto) Not Reportable 11/04/17 15:41 Total Counted 50 10/25/17 14:21 Seg Neutrophils % 8.0 % (38-70) L 10/25/17 14:21 Lymphocytes % (Manual) 52.0 % (25-45) H 10/25/17 14:21 Atypical Lymphs % 20.0 % (-0) H 10/25/17 14:21 Monocytes % (Manual) 18.0 % (2-11) H 10/25/17 14:21 Eosinophils % (Manual) 2.0 % (2-4) 10/25/17 14:21 Neutrophils # (Manual) 168 /uL (2161-4773) L 10/25/17 14:21 Nucleated RBCs 1 #/Diff (-0) H 10/25/17 14:21 Smudge Cells 1+ H 10/25/17 14:21 RBC Morphology Not Reportable 11/04/17 15:41 Anisocytosis 1+ H 10/25/17 14:21 Macrocytosis 1+ H 10/25/17 14:21 Sodium 146 mmol/L (137-145) H 11/04/17 15:41 Potassium 4.3 mmol/L (3.4-5.1) 11/04/17 15:41 Chloride 108 mmol/L (98-107) H 11/04/17 15:41 Carbon Dioxide 27 mmol/L (22-32) 11/04/17 15:41 BUN 23 mg/dL (9-20) H 11/04/17 15:41 Creatinine 1.50 mg/dL (0.66-1.25) H 11/04/17 15:41 Estimated GFR 45.6 mL/min (>60) L 11/04/17 15:41 BUN/Creatinine Ratio 15.3 (6-22) 11/04/17 15:41 Glucose 111 mg/dL (80-110) H 11/04/17 15:41 Calcium 9.5 mg/dL (8.4-10.2) 11/04/17 15:41 Total Bilirubin 0.6 mg/dL (0.2-1.3) 11/04/17 15:41 AST 27 IU/L (17-59) 11/04/17 15:41 ALT 34 IU/L (21-72) 11/04/17 15:41 Alkaline Phosphatase 98 U/L (38-126) 11/04/17 15:41 Total Protein 6.7 g/dL (6.3-8.2) 11/04/17 15:41 Albumin 4.0 g/dL (3.5-5.0) 11/04/17 15:41 Globulin 2.7 g/dL (1.7-4.1) 11/04/17 15:41 Albumin/Globulin Ratio 1.5 (1.0-2.8) 11/04/17 15:41 - Imaging Additional studies: Procedures Non-invasive mechanical ventilation (08/22/14) Assessment and Plan (1) Acute myeloid leukemia Current visit: Yes Status: Acute I had a long discussion with the patient and patient's . I agree with that the prognosis is grim. I agree with patient's decision for palliative care. I talked with the patient that in the near future, we are expecting to see severe leukopenia, severe anemia and severe thrombocytopenia. Patient will be at risk for infection, bleeding, and severe fatigue. I talked with the patient that he will need to be seen at our clinic at least once a week. We will need to check CBC, CMP and uric acid level. He will need blood transfusion and/or platelets transfusion or antibiotics on an as needed basis. In addition patient may need hydration. As far as the treatment acute myeloid leukemia is concerned, in my opinion more information especially molecular studies are needed. I will obtain the complete report from [facility]. In addition I think the patient will need NGS molecular studies will be of value. Recent report has shown that some patient with IDH mutation can be treated with a targeted therapy with good outcome. 11/04/17 18:39 (2) Pancytopenia Current visit: Yes Status: Acute I reviewed the results of CBC with differential was obtained today. Patient's platelet counts have been decreasing significantly. Today the platelet counts were 28. Patient's white cell count is 2.4 and the hemoglobin level is 9.5. I am concerned about the rapid decrease of the platelet count. Over the next couple of days, it is anticipated that the platelet counts may drop below 10,000. Therefore I recommend that we proceed with platelet transfusion tomorrow morning which is Wednesday. I will have the patient come back next and we will repeat the CBC with differentials. I will decide if the patient will need more blood transfusion or not. As for the leukopenia, I would recommend that patient continues to take Levaquin 500 mg once a day prophylactically. 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 See above. - Time Spent with Patient Final the patient pointed out that he has a poor venous access. And he does not want to have a port placement. And he would like to have a PICC line. I will schedule this to be performed tomorrow morning before the platelet transfusion.
--- NOTE | 2017-11-04 18:37 | P.PNONC_ITS ---
PN -Subjective Interval history: INTERIM EVENTS This is a 76-year-old gentleman with prolonged history of essential thrombocytosis. Recently he developed pancytopenia. 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 Therefore patient was referred to [facility] for evaluation and management. And on October 29, 2017, patient went back to [facility] again for further discussion. Patient reported that Dr. Hardy talked with him about multiple options including intensive chemotherapy as an inpatient vs pallaitiv care. Patient told me that he has thought about it carefully and he decided he does not want to proceed with the chemotherapy. He would like to proceed with palliative care locally. While at [facility] patient has significant fatigue. Patient said he was basically exhausted and just wiped out. He thought that might be related to the underlying acute myeloid leukemia as well as the traveling from [place] to [place]. At [facility] patient received a blood transfusion and patient said that he had felt great after the blood transfusion. Today he was able to walk into the clinic. In addition at the [facility] patient also was given ranitidine for apparent acid reflux. That also has relieved much of the abdominal pain symptoms and patient is very satisfied. - Patient Self-Reported Symptoms SR Constitution: Fatigue/Malaise SR respiratory issues: Shortness of breath SR Cardiovascular issues: Shortness of breath with activity or lying flat, Extreme swelling, Dizzy/lightheaded - Additional ROS All systems PM: reviewed and no additional remarkable complaints except as stated Home Medications and Allergies Home Medications Medication Instructions Recorded Confirmed Type acetaminophen 650 mg PO Q8HP #0 10/07/16 10/07/17 History furosemide 20 mg PO Q DAY #90 tab 06/10/17 10/07/17 Rx clonazepam 1 mg tablet 1 mg PO HS #90 tab 07/08/17 10/07/17 Rx carvedilol [Coreg] 25 mg PO BID #180 tab 10/04/17 10/07/17 Rx amlodipine 5 mg PO DAILY 11/04/17 11/04/17 History Allergies Allergy/AdvReac Type Severity Reaction Status Date / Time oxycodone [OXYCODONE] Allergy Unknown HALLUCINATI Verified 10/13/17 10:22 ONS tramadol [TRAMADOL] Allergy Unknown Verified 10/13/17 10:22 Exam Vital signs: Last Vital Signs Temp 97.3 F L 11/04/17 17:31 Pulse 62 11/04/17 17:31 Resp 16 11/04/17 17:31 BP 121/67 11/04/17 17:31 Pulse Ox 100 11/04/17 17:31 - Constitutional positive no acute distress, positive average body habitus, positive chronically ill appearing, positive cooperative - Routine HEENT Exam Head: Present: normocephalic, atraumatic Eye: Present: EOMI, PERRL, normal accommodation. Absent: conjunctival icterus ENT: Present: mucous membranes moist - Routine Neck Exam Present: supple, full ROM. Absent: lymphadenopathy, thyromegaly - Routine Respiratory Exam Present: Clear to auscultation bilaterally. Absent: wheezes - Routine Cardiovascular Exam Present: RRR, S1, S2. Absent: murmur, gallop, rubs - Routine Abdominal Exam Present: soft, normoactive bowel sounds. Absent: tenderness, distended, organomegaly - Routine Extremities Exam Absent: cyanosis, clubbing, edema - Routine Back/Spine Exam Back/Spine: Present: full ROM - Routine Skin Exam Present: intact. Absent: cyanosis, erythema - Routine Neurological Exam Present: alert, oriented X3, CN II-XII intact, normal tone, normal speech. Absent: sensory deficit, motor deficit - Routine Psychiatric Exam Present: normal affect, normal thought process, cooperative, good insight, good judgment Results - Labs Laboratory Last Values WBC 2.4 X10^3/uL (4.5-11.0) L 11/04/17 15:41 RBC 2.48 X10^6/uL (4.5-5.9) L 11/04/17 15:41 Hgb 9.5 g/dL (13.5-17.5) L 11/04/17 15:41 Hct 26.2 % (41-53) L 11/04/17 15:41 MCV 105.6 fL (80-100) H 11/04/17 15:41 MCH 38.2 PG (26-34) H 11/04/17 15:41 MCHC 36.2 % (30-36) H 11/04/17 15:41 RDW 18.6 % (11.6-14.8) H 11/04/17 15:41 Plt Count 28 X10^3/uL (150-400) L* 11/04/17 15:41 Neut % (Auto) Not Reportable 11/04/17 15:41 Lymph % (Auto) Not Reportable 11/04/17 15:41 [place] % (Auto) Not Reportable 11/04/17 15:41 Eos % (Auto) Not Reportable 11/04/17 15:41 Baso % (Auto) Not Reportable 11/04/17 15:41 Total Counted 50 10/25/17 14:21 Seg Neutrophils % 8.0 % (38-70) L 10/25/17 14:21 Lymphocytes % (Manual) 52.0 % (25-45) H 10/25/17 14:21 Atypical Lymphs % 20.0 % (-0) H 10/25/17 14:21 Monocytes % (Manual) 18.0 % (2-11) H 10/25/17 14:21 Eosinophils % (Manual) 2.0 % (2-4) 10/25/17 14:21 Neutrophils # (Manual) 168 /uL (4337-8443) L 10/25/17 14:21 Nucleated RBCs 1 #/Diff (-0) H 10/25/17 14:21 Smudge Cells 1+ H 10/25/17 14:21 RBC Morphology Not Reportable 11/04/17 15:41 Anisocytosis 1+ H 10/25/17 14:21 Macrocytosis 1+ H 10/25/17 14:21 Sodium 146 mmol/L (137-145) H 11/04/17 15:41 Potassium 4.3 mmol/L (3.4-5.1) 11/04/17 15:41 Chloride 108 mmol/L (98-107) H 11/04/17 15:41 Carbon Dioxide 27 mmol/L (22-32) 11/04/17 15:41 BUN 23 mg/dL (9-20) H 11/04/17 15:41 Creatinine 1.50 mg/dL (0.66-1.25) H 11/04/17 15:41 Estimated GFR 45.6 mL/min (>60) L 11/04/17 15:41 BUN/Creatinine Ratio 15.3 (6-22) 11/04/17 15:41 Glucose 111 mg/dL (80-110) H 11/04/17 15:41 Calcium 9.5 mg/dL (8.4-10.2) 11/04/17 15:41 Total Bilirubin 0.6 mg/dL (0.2-1.3) 11/04/17 15:41 AST 27 IU/L (17-59) 11/04/17 15:41 ALT 34 IU/L (21-72) 11/04/17 15:41 Alkaline Phosphatase 98 U/L (38-126) 11/04/17 15:41 Total Protein 6.7 g/dL (6.3-8.2) 11/04/17 15:41 Albumin 4.0 g/dL (3.5-5.0) 11/04/17 15:41 Globulin 2.7 g/dL (1.7-4.1) 11/04/17 15:41 Albumin/Globulin Ratio 1.5 (1.0-2.8) 11/04/17 15:41 - Imaging Additional studies: Procedures Non-invasive mechanical ventilation (08/22/14) Assessment and Plan (1) Acute myeloid leukemia Current visit: Yes Status: Acute I had a long discussion with the patient and patient's . I agree with that the prognosis is grim. I agree with patient's decision for palliative care. I talked with the patient that in the near future, we are expecting to see severe leukopenia, severe anemia and severe thrombocytopenia. Patient will be at risk for infection, bleeding, and severe fatigue. I talked with the patient that he will need to be seen at our clinic at least once a week. We will need to check CBC, CMP and uric acid level. He will need blood transfusion and/or platelets transfusion or antibiotics on an as needed basis. In addition patient may need hydration. As far as the treatment acute myeloid leukemia is concerned, in my opinion more information especially molecular studies are needed. I will obtain the complete report from [facility]. In addition I think the patient will need NGS molecular studies will be of value. Recent report has shown that some patient with IDH mutation can be treated with a targeted therapy with good outcome. 11/04/17 18:39 (2) Pancytopenia Current visit: Yes Status: Acute I reviewed the results of CBC with differential was obtained today. Patient's platelet counts have been decreasing significantly. Today the platelet counts were 28. Patient's white cell count is 2.4 and the hemoglobin level is 9.5. I am concerned about the rapid decrease of the platelet count. Over the next couple of days, it is anticipated that the platelet counts may drop below 10, 000. Therefore I recommend that we proceed with platelet transfusion tomorrow morning which is Wednesday. I will have the patient come back next and we will repeat the CBC with differentials. I will decide if the patient will need more blood transfusion or not. As for the leukopenia, I would recommend that patient continues to take Levaquin 500 mg once a day prophylactically. 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 See above. - Time Spent with Patient Final the patient pointed out that he has a poor venous access. And he does not want to have a port placement. And he would like to have a PICC line. I will schedule this to be performed tomorrow morning before the platelet transfusion.
--- NOTE | 2017-11-05 11:41 | ONC.NAV ---
Description: T/C w/ re: pt's continued goals of care. Activity: Called , per our plan, to check-in re: how both pt and her are coping after having a very tough conversation yesterday with Dr. Heard about disease progression, and the decision to focus only on palliative/supportive care measures. Both pt and feel very relieved about this decision, and they feel that it will give him the quality of life and symptom management that he is wanting. They also requested that this ADVERTISING PRODUCTION MANAGER notify Hospice and request an informational visit for them. ADVERTISING PRODUCTION MANAGER compiled pt's ONC records and faxed to [facility] as requested. No further needs identified at this time.
--- NOTE | 2017-11-05 13:14 | ONC.SCHED ---
IDH 1&2 ADDED TO BM SPECIMEN FROM 10/11. DR SALMERON SPOKE DIRECTLY WITH [facility] TO ADD
[2017-11-05 13:41] VITALS: BP 113/65; PULSE 71; RESP 16; TEMP 36.7; O2SAT 99
[2017-11-05 14:27] VITALS: BP 113/65; PULSE 71; RESP 16; TEMP 36.8
[2017-11-05 14:43] VITALS: BP 105/58; PULSE 73; RESP 16; TEMP 36.6
[2017-11-05 15:26] VITALS: BP 111/57; PULSE 73; RESP 16; TEMP 36.7
[2017-11-06 10:30] VITALS: BP 123/78; PULSE 73; RESP 20; TEMP 36.6
--- NOTE | 2017-11-06 10:33 | PC.NURSE ---
Pt has a L.upper Picc Line, dressing changed, dated, new cap applied to end, and flushed. Pt tolerated procedure well. VS in and Charted on Picc Line under IV section under worklist.
[2017-11-11 10:55] LABS: Hemoglobin 7.4 g/dL (13.5-17.5); Mean Corpuscular HGB Conc 36.4 % (30-36); Mean Corpuscular Volume 104.2 fL (80-100); Red Blood Cell Count 1.96 X10^6/uL (4.5-5.9); White Blood Cell Count 3.6 X10^3/uL (4.5-11.0)
[2017-11-11 11:04] LABS: Hematocrit 20.4 % (41-53); Platelet Count 22 X10^3/uL (150-400)
[2017-11-11 11:15] LABS: Alanine Aminotransferase 33 IU/L (21-72); Albumin 3.9 g/dL (3.5-5.0); Albumin Globulin Ratio 1.5 (1.0-2.8); Alkaline Phosphatase 87 U/L (38-126); Aspartate Aminotransferase 29 IU/L (17-59); Bilirubin Total 0.6 mg/dL (0.2-1.3); Blood Urea Nitrogen 21 mg/dL (9-20); Calcium 8.9 mg/dL (8.4-10.2); Carbon Dioxide 26 mmol/L (22-32); Chloride 109 mmol/L (98-107); Estimated Glomerular Filt Rate 49.4 mL/min (>60); Globulin 2.6 g/dL (1.7-4.1); Glucose 100 mg/dL (80-110); HEMOLYSIS < 15 (0-50); Sodium 144 mmol/L (137-145); Total Protein 6.5 g/dL (6.3-8.2); Uric Acid 7.9 mg/dL (3.5-8.5)
--- NOTE | 2017-11-11 11:32 | ONC.PN ---
PN -Subjective Interval history: INTERIM EVENTS On November 05, 2017, patient underwent platelet transfusion due to rapidly declining platelet counts. Patient tolerated the procedure well. No bleeding events since then. Patient presents here today for scheduled follow-up visit. Patient reported that he has noticed progressively worsening dizziness especially upon standing up. Patient also reported progressively worsening fatigue especially so during the last couple of days. Patient reports no fever and no chills. No sore throat. No cough. No abdominal pain, no diarrhea, no constipation. He denies any skin rashes. ONOCLOGY HISTORY This is a 76-year-old gentleman with prolonged history of essential thrombocytosis. Recently he developed pancytopenia. 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 Therefore patient was referred to [facility] for evaluation and management. And on October 29, 2017, patient went back to [facility] again for further discussion. Patient reported that Dr. Hardy talked with him about multiple options including intensive chemotherapy as an inpatient vs pallaitiv care. Patient told me that he has thought about it carefully and he decided he does not want to proceed with the chemotherapy. He would like to proceed with palliative care locally. While at [facility] patient has significant fatigue. Patient said he was basically exhausted and just wiped out. He thought that might be related to the underlying acute myeloid leukemia as well as the traveling from [place] to [place]. At [facility] patient received a blood transfusion and patient said that he had felt great after the blood transfusion. Today he was able to walk into the clinic. In addition at the [facility] patient also was given ranitidine for apparent acid reflux. That also has relieved much of the abdominal pain symptoms and patient is very satisfied. - Patient Self-Reported Symptoms SR Constitution: Fatigue/Malaise SR respiratory issues: Shortness of breath SR Cardiovascular issues: Shortness of breath with activity or lying flat, Extreme swelling, Dizzy/lightheaded Home Medications and Allergies Home Medications Medication Instructions Recorded Confirmed Type acetaminophen 650 mg PO Q8HP #0 10/07/16 10/07/17 History furosemide 20 mg PO Q DAY #90 tab 06/10/17 10/07/17 Rx clonazepam 1 mg tablet 1 mg PO HS #90 tab 07/08/17 10/07/17 Rx carvedilol [Coreg] 25 mg PO BID #180 tab 10/04/17 10/07/17 Rx amlodipine 5 mg PO DAILY 11/04/17 11/04/17 History levofloxacin [Levaquin] 500 mg PO DAILY 11/11/17 11/11/17 History ranitidine HCl 150 mg PO DAILY 11/11/17 11/11/17 History Allergies Allergy/AdvReac Type Severity Reaction Status Date / Time oxycodone [OXYCODONE] Allergy Unknown HALLUCINATI Verified 10/13/17 10:22 ONS tramadol [TRAMADOL] Allergy Unknown Verified 10/13/17 10:22 Exam Vital signs: Temperature 96.6?, heart rate 60, respiratory rate 16, blood pressure 105/50 while sitting 96/57 while standing. Oxygenation 100% on room air, weight 234.1 lb, ECOG 1-2. - Constitutional positive no acute distress, positive cooperative - Routine HEENT Exam Head: Present: normocephalic, atraumatic Eye: Present: EOMI, PERRL, normal accommodation. Absent: conjunctival icterus ENT: Present: mucous membranes moist - Routine Neck Exam Present: supple, full ROM - Routine Respiratory Exam Present: Clear to auscultation bilaterally. Absent: stridor, wheezes - Routine Cardiovascular Exam Present: RRR, S1, S2. Absent: murmur, gallop, rubs - Routine Abdominal Exam Present: soft, normoactive bowel sounds. Absent: tenderness, distended - Routine Psychiatric Exam Present: normal affect, normal thought process, cooperative Results - Labs Laboratory Last Values WBC 3.6 X10^3/uL (4.5-11.0) L 11/11/17 10:34 RBC 1.96 X10^6/uL (4.5-5.9) L 11/11/17 10:34 Hgb 7.4 g/dL (13.5-17.5) L 11/11/17 10:34 Hct 20.4 % (41-53) L* 11/11/17 10:34 MCV 104.2 fL (80-100) H 11/11/17 10:34 MCH 38.0 PG (26-34) H 11/11/17 10:34 MCHC 36.4 % (30-36) H 11/11/17 10:34 RDW 19.0 % (11.6-14.8) H 11/11/17 10:34 Plt Count 22 X10^3/uL (150-400) L* 11/11/17 10:34 Neut % (Auto) Not Reportable 11/04/17 15:41 Lymph % (Auto) Not Reportable 11/04/17 15:41 [place] % (Auto) Not Reportable 11/04/17 15:41 Eos % (Auto) Not Reportable 11/04/17 15:41 Baso % (Auto) Not Reportable 11/04/17 15:41 Total Counted 100 11/04/17 15:41 Seg Neutrophils % 4.0 % (38-70) L 11/04/17 15:41 Lymphocytes % (Manual) 60.0 % (25-45) H 11/04/17 15:41 Atypical Lymphs % 20.0 % (-0) H 11/04/17 15:41 Monocytes % (Manual) 16.0 % (2-11) H 11/04/17 15:41 Eosinophils % (Manual) 2.0 % (2-4) 10/25/17 14:21 Neutrophils # (Manual) 96 /uL (2190-2779) L 11/04/17 15:41 Nucleated RBCs 1 #/Diff (-0) H 10/25/17 14:21 Smudge Cells 1+ H 10/25/17 14:21 RBC Morphology Not Reportable 11/04/17 15:41 Anisocytosis 2+ H 11/04/17 15:41 Macrocytosis 1+ H 11/04/17 15:41 Sodium 144 mmol/L (137-145) 11/11/17 10:34 Potassium 4.0 mmol/L (3.4-5.1) 11/11/17 10:34 Chloride 109 mmol/L (98-107) H 11/11/17 10:34 Carbon Dioxide 26 mmol/L (22-32) 11/11/17 10:34 BUN 21 mg/dL (9-20) H 11/11/17 10:34 Creatinine 1.40 mg/dL (0.66-1.25) H 11/11/17 10:34 Estimated GFR 49.4 mL/min (>60) L 11/11/17 10:34 BUN/Creatinine Ratio 15.0 (6-22) 11/11/17 10:34 Glucose 100 mg/dL (80-110) 11/11/17 10:34 Uric Acid 7.9 mg/dL (3.5-8.5) 11/11/17 10:34 Calcium 8.9 mg/dL (8.4-10.2) 11/11/17 10:34 Total Bilirubin 0.6 mg/dL (0.2-1.3) 11/11/17 10:34 AST 29 IU/L (17-59) 11/11/17 10:34 ALT 33 IU/L (21-72) 11/11/17 10:34 Alkaline Phosphatase 87 U/L (38-126) 11/11/17 10:34 Total Protein 6.5 g/dL (6.3-8.2) 11/11/17 10:34 Albumin 3.9 g/dL (3.5-5.0) 11/11/17 10:34 Globulin 2.6 g/dL (1.7-4.1) 11/11/17 10:34 Albumin/Globulin Ratio 1.5 (1.0-2.8) 11/11/17 10:34 Blood Type A Negative 11/05/17 13:25 - Imaging Additional studies: Procedures Non-invasive mechanical ventilation (08/22/14) Assessment and Plan (1) Acute myeloid leukemia Current visit: Yes Status: Acute During today's encounter, patient and patient's asked many questions. First of all they were asking about if the steroid injection as far as his left shoulder arthritis is concerned will be safe or not. Patient said that his left shoulder is getting painful again and he has been getting regular injection of steroids in the past. I talked with them that my concern is the risk of infection given that the patient has a malfunctioning white blood cell and decreased immune systems. But it is not absolutely contraindicated. If it is helpful in terms of pain control, I would recommend continue steroid shot with good sterile technique and close attention of follow up. Patient voiced understanding. Next patient was asking about the possible life span and time remaining. I talked with the patient that it is extremely difficult to estimate. Usually for acute myeloid leukemia, the average survival is measured in months. Patient voiced understanding. He said he needs to have a rough idea in order to order to plan ahead. I talked with them that I am still waiting for the molecular profiling results. The resulting will include FLT3, NPM1, CEBP, IDH 1/2. That may help as decide about our next step. Given the rapidly progressing acute myeloid leukemia, I would recommend that we start treatment with Vidaza. hopefully it will decrease the need for blood transfusion. 11/04/17 18:39 (2) Pancytopenia Current visit: Yes Status: Acute Patient is severely anemic and thrombocytopenic today. And I will recommend blood transfusion pRBC 2 units and platelet 1 unit. I also instructed the patient to call us if there is any bleeding events or fever or chills. 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 See above. (4) Orthostatic hypotension Current visit: Yes Status: Acute Patient's vitals reviewed orthostatic hypotension. It indicated dehydration. Patient has history of cardiac disease. I will proceed with mild rehydration with normal saline 500 cc. Patient will get blood transfusion late today or early tomorrow. See above.
[2017-11-11 11:38] VITALS: BP 105/56; PULSE 60; RESP 16; TEMP 35.9; O2SAT 100
--- NOTE | 2017-11-11 11:41 | P.PNONC_ITS ---
PN -Subjective Interval history: INTERIM EVENTS On November 05, 2017, patient underwent platelet transfusion due to rapidly declining platelet counts. Patient tolerated the procedure well. No bleeding events since then. Patient presents here today for scheduled follow-up visit. Patient reported that he has noticed progressively worsening dizziness especially upon standing up. Patient also reported progressively worsening fatigue especially so during the last couple of days. Patient reports no fever and no chills. No sore throat. No cough. No abdominal pain, no diarrhea, no constipation. He denies any skin rashes. ONOCLOGY HISTORY This is a 76-year-old gentleman with prolonged history of essential thrombocytosis. Recently he developed pancytopenia. 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 Therefore patient was referred to [facility] for evaluation and management. And on October 29, 2017, patient went back to [facility] again for further discussion. Patient reported that Dr. Hardy talked with him about multiple options including intensive chemotherapy as an inpatient vs pallaitiv care. Patient told me that he has thought about it carefully and he decided he does not want to proceed with the chemotherapy. He would like to proceed with palliative care locally. While at [facility] patient has significant fatigue. Patient said he was basically exhausted and just wiped out. He thought that might be related to the underlying acute myeloid leukemia as well as the traveling from [place] to [place]. At [facility] patient received a blood transfusion and patient said that he had felt great after the blood transfusion. Today he was able to walk into the clinic. In addition at the [facility] patient also was given ranitidine for apparent acid reflux. That also has relieved much of the abdominal pain symptoms and patient is very satisfied. - Patient Self-Reported Symptoms SR Constitution: Fatigue/Malaise SR respiratory issues: Shortness of breath SR Cardiovascular issues: Shortness of breath with activity or lying flat, Extreme swelling, Dizzy/lightheaded Home Medications and Allergies Home Medications Medication Instructions Recorded Confirmed Type acetaminophen 650 mg PO Q8HP #0 10/07/16 10/07/17 History furosemide 20 mg PO Q DAY #90 tab 06/10/17 10/07/17 Rx clonazepam 1 mg tablet 1 mg PO HS #90 tab 07/08/17 10/07/17 Rx carvedilol [Coreg] 25 mg PO BID #180 tab 10/04/17 10/07/17 Rx amlodipine 5 mg PO DAILY 11/04/17 11/04/17 History levofloxacin [Levaquin] 500 mg PO DAILY 11/11/17 11/11/17 History ranitidine HCl 150 mg PO DAILY 11/11/17 11/11/17 History Allergies Allergy/AdvReac Type Severity Reaction Status Date / Time oxycodone [OXYCODONE] Allergy Unknown HALLUCINATI Verified 10/13/17 10:22 ONS tramadol [TRAMADOL] Allergy Unknown Verified 10/13/17 10:22 Exam Vital signs: Temperature 96.6?, heart rate 60, respiratory rate 16, blood pressure 105/50 while sitting 96/57 while standing. Oxygenation 100% on room air, weight 234.1 lb, ECOG 1-2. - Constitutional positive no acute distress, positive cooperative - Routine HEENT Exam Head: Present: normocephalic, atraumatic Eye: Present: EOMI, PERRL, normal accommodation. Absent: conjunctival icterus ENT: Present: mucous membranes moist - Routine Neck Exam Present: supple, full ROM - Routine Respiratory Exam Present: Clear to auscultation bilaterally. Absent: stridor, wheezes - Routine Cardiovascular Exam Present: RRR, S1, S2. Absent: murmur, gallop, rubs - Routine Abdominal Exam Present: soft, normoactive bowel sounds. Absent: tenderness, distended - Routine Psychiatric Exam Present: normal affect, normal thought process, cooperative Results - Labs Laboratory Last Values WBC 3.6 X10^3/uL (4.5-11.0) L 11/11/17 10:34 RBC 1.96 X10^6/uL (4.5-5.9) L 11/11/17 10:34 Hgb 7.4 g/dL (13.5-17.5) L 11/11/17 10:34 Hct 20.4 % (41-53) L* 11/11/17 10:34 MCV 104.2 fL (80-100) H 11/11/17 10:34 MCH 38.0 PG (26-34) H 11/11/17 10:34 MCHC 36.4 % (30-36) H 11/11/17 10:34 RDW 19.0 % (11.6-14.8) H 11/11/17 10:34 Plt Count 22 X10^3/uL (150-400) L* 11/11/17 10:34 Neut % (Auto) Not Reportable 11/04/17 15:41 Lymph % (Auto) Not Reportable 11/04/17 15:41 [place] % (Auto) Not Reportable 11/04/17 15:41 Eos % (Auto) Not Reportable 11/04/17 15:41 Baso % (Auto) Not Reportable 11/04/17 15:41 Total Counted 100 11/04/17 15:41 Seg Neutrophils % 4.0 % (38-70) L 11/04/17 15:41 Lymphocytes % (Manual) 60.0 % (25-45) H 11/04/17 15:41 Atypical Lymphs % 20.0 % (-0) H 11/04/17 15:41 Monocytes % (Manual) 16.0 % (2-11) H 11/04/17 15:41 Eosinophils % (Manual) 2.0 % (2-4) 10/25/17 14:21 Neutrophils # (Manual) 96 /uL (8072-5539) L 11/04/17 15:41 Nucleated RBCs 1 #/Diff (-0) H 10/25/17 14:21 Smudge Cells 1+ H 10/25/17 14:21 RBC Morphology Not Reportable 11/04/17 15:41 Anisocytosis 2+ H 11/04/17 15:41 Macrocytosis 1+ H 11/04/17 15:41 Sodium 144 mmol/L (137-145) 11/11/17 10:34 Potassium 4.0 mmol/L (3.4-5.1) 11/11/17 10:34 Chloride 109 mmol/L (98-107) H 11/11/17 10:34 Carbon Dioxide 26 mmol/L (22-32) 11/11/17 10:34 BUN 21 mg/dL (9-20) H 11/11/17 10:34 Creatinine 1.40 mg/dL (0.66-1.25) H 11/11/17 10:34 Estimated GFR 49.4 mL/min (>60) L 11/11/17 10:34 BUN/Creatinine Ratio 15.0 (6-22) 11/11/17 10:34 Glucose 100 mg/dL (80-110) 11/11/17 10:34 Uric Acid 7.9 mg/dL (3.5-8.5) 11/11/17 10:34 Calcium 8.9 mg/dL (8.4-10.2) 11/11/17 10:34 Total Bilirubin 0.6 mg/dL (0.2-1.3) 11/11/17 10:34 AST 29 IU/L (17-59) 11/11/17 10:34 ALT 33 IU/L (21-72) 11/11/17 10:34 Alkaline Phosphatase 87 U/L (38-126) 11/11/17 10:34 Total Protein 6.5 g/dL (6.3-8.2) 11/11/17 10:34 Albumin 3.9 g/dL (3.5-5.0) 11/11/17 10:34 Globulin 2.6 g/dL (1.7-4.1) 11/11/17 10:34 Albumin/Globulin Ratio 1.5 (1.0-2.8) 11/11/17 10:34 Blood Type A Negative 11/05/17 13:25 - Imaging Additional studies: Procedures Non-invasive mechanical ventilation (08/22/14) Assessment and Plan (1) Acute myeloid leukemia Current visit: Yes Status: Acute During today's encounter, patient and patient's asked many questions. First of all they were asking about if the steroid injection as far as his left shoulder arthritis is concerned will be safe or not. Patient said that his left shoulder is getting painful again and he has been getting regular injection of steroids in the past. I talked with them that my concern is the risk of infection given that the patient has a malfunctioning white blood cell and decreased immune systems. But it is not absolutely contraindicated. If it is helpful in terms of pain control, I would recommend continue steroid shot with good sterile technique and close attention of follow up. Patient voiced understanding. Next patient was asking about the possible life span and time remaining. I talked with the patient that it is extremely difficult to estimate. Usually for acute myeloid leukemia, the average survival is measured in months. Patient voiced understanding. He said he needs to have a rough idea in order to order to plan ahead. I talked with them that I am still waiting for the molecular profiling results. The resulting will include FLT3, NPM1, CEBP, IDH 1/2. That may help as decide about our next step. Given the rapidly progressing acute myeloid leukemia, I would recommend that we start treatment with Vidaza. hopefully it will decrease the need for blood transfusion. 11/04/17 18:39 (2) Pancytopenia Current visit: Yes Status: Acute Patient is severely anemic and thrombocytopenic today. And I will recommend blood transfusion pRBC 2 units and platelet 1 unit. I also instructed the patient to call us if there is any bleeding events or fever or chills. 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 See above. (4) Orthostatic hypotension Current visit: Yes Status: Acute Patient's vitals reviewed orthostatic hypotension. It indicated dehydration. Patient has history of cardiac disease. I will proceed with mild rehydration with normal saline 500 cc. Patient will get blood transfusion late today or early tomorrow. See above.
[2017-11-11] MEDS: SODIUM CHLORIDE 0.9% 500 ML 250 ML IV (12:20)
[2017-11-11 12:35] LABS: Neutrophils Absolute Manual 36 /uL (3000-5900); Total Cells Counted 100
[2017-11-11 12:37] LABS: Macrocytosis 1+
[2017-11-11 12:39] LABS: Anisocytosis 2+
[2017-11-12] VITALS (9 sets, daily range): BP systolic 97–128; BP diastolic 51–66; PULSE 16–78; RESP 16–69; TEMP 36.2–36.8
--- NOTE | 2017-11-12 09:49 | ONC.NAV ---
Description: Advanced Directives Activity: Assisted pt and in discussing his goals and preferences for his POLST form. Completed the form, and will obtain MD signature so pt can take it with him at the end of his visit today. Discussed end of life fears, and provided additional information about hospice care. No other needs identified at this time.
--- NOTE | 2017-11-16 15:34 | PC.NURSE ---
T[place]on left message on triage voicemail stating that he is scheduled for a Dr Heard appt on 11/22, followed by Vidaza to be initiated on 11/22 after his appt with provider. He would like to keep his appt with Dr Heard on 11/22 but states that he does not want to received the Vidaza. He is asking for that to be cancelled. Jennifer notified. Will place note in Dr Heard's box, making him aware. Schedulers notified so they can cancel chair time.
[2017-11-17 10:49] LABS: Hematocrit 26.6 % (41-53); Hemoglobin 9.4 g/dL (13.5-17.5); Mean Corpuscular HGB Conc 35.4 % (30-36); Mean Corpuscular Hemoglobin 35.8 PG (26-34); Mean Corpuscular Volume 101.3 fL (80-100); Red Blood Cell Count 2.62 X10^6/uL (4.5-5.9); Red Cell Distribution Width 19.9 % (11.6-14.8); White Blood Cell Count 3.5 X10^3/uL (4.5-11.0)
[2017-11-17 10:50] LABS: Add Manual Diff / Slide Review YES
[2017-11-17 10:51] LABS: Platelet Count 18 X10^3/uL (150-400)
[2017-11-17 10:57] LABS: Alanine Aminotransferase 132 IU/L (21-72); Albumin 3.9 g/dL (3.5-5.0); Albumin Globulin Ratio 1.4 (1.0-2.8); Alkaline Phosphatase 151 U/L (38-126); Aspartate Aminotransferase 99 IU/L (17-59); BUN Creatinine Ratio 13.6 (6-22); Bilirubin Total 0.7 mg/dL (0.2-1.3); Blood Urea Nitrogen 19 mg/dL (9-20); Calcium 8.8 mg/dL (8.4-10.2); Carbon Dioxide 27 mmol/L (22-32); Chloride 108 mmol/L (98-107); Estimated Glomerular Filt Rate 49.4 mL/min (>60); Globulin 2.8 g/dL (1.7-4.1); Glucose 101 mg/dL (80-110); HEMOLYSIS < 15 (0-50); Potassium 3.8 mmol/L (3.4-5.1); Sodium 144 mmol/L (137-145); Total Protein 6.7 g/dL (6.3-8.2)
[2017-11-17 11:36] LABS: Anisocytosis 2+; Hypochromasia 2+; Neutrophils Absolute Manual 70 /uL (3000-5900); Total Cells Counted 100
--- NOTE | 2017-11-17 13:07 | PC.NURSE ---
faxed lab results to Dr Heard. Plt of 18. Last time pt received platelet transfusion for plt count of 22. Due to heading into the weekend and previous transfusion orders per Dr Heard, 1 bag platelets ordered for transfusion for tomorrow 11/18. Pt notified and scheduled.
[2017-11-18 13:01] VITALS: BP 115/49; PULSE 77; RESP 16; TEMP 36.7
[2017-11-18 13:16] VITALS: BP 104/51; PULSE 71; RESP 18; TEMP 36.9
[2017-11-18 13:20] VITALS: BP 104/51; PULSE 71; RESP 18; TEMP 36.9
--- NOTE | 2017-11-18 13:53 | PC.NURSE ---
CADD pump dc'd, port flushed per protocol. Pt reports feeling good. Denies chest pain and SOB. RR equal and unlabored. face and body relaxed, gait steady.
[2017-11-18] MEDS: diphenhydrAMINE 25 MG TABLET PO (14:14)
[2017-11-18 14:35] VITALS: BP 116/71; PULSE 73; RESP 16; TEMP 36.4
[2017-11-22 11:16] VITALS: BP 120/58; PULSE 70; RESP 16; TEMP 36.7; O2SAT 98
[2017-11-22 11:18] LABS: Hematocrit 25.3 % (41-53); Mean Corpuscular HGB Conc 35.7 % (30-36); Mean Corpuscular Volume 100.9 fL (80-100); Red Cell Distribution Width 19.7 % (11.6-14.8); White Blood Cell Count 5.6 X10^3/uL (4.5-11.0)
[2017-11-22 11:19] LABS: Add Manual Diff / Slide Review YES; Platelet Count 16 X10^3/uL (150-400)
[2017-11-22 11:24] LABS: Alanine Aminotransferase 71 IU/L (21-72); Albumin 3.9 g/dL (3.5-5.0); Albumin Globulin Ratio 1.4 (1.0-2.8); Alkaline Phosphatase 195 U/L (38-126); Aspartate Aminotransferase 33 IU/L (17-59); BUN Creatinine Ratio 12.9 (6-22); Bilirubin Total 0.6 mg/dL (0.2-1.3); Blood Urea Nitrogen 18 mg/dL (9-20); Calcium 8.9 mg/dL (8.4-10.2); Carbon Dioxide 28 mmol/L (22-32); Chloride 108 mmol/L (98-107); Estimated Glomerular Filt Rate 49.3 mL/min (>60); Globulin 2.8 g/dL (1.7-4.1); Glucose 105 mg/dL (80-110); HEMOLYSIS < 15 (0-50); Potassium 3.9 mmol/L (3.4-5.1); Sodium 144 mmol/L (137-145); Total Protein 6.7 g/dL (6.3-8.2)
--- NOTE | 2017-11-22 11:51 | P.PNONC_ITS ---
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 INTERIM EVENTS He came in again accompanied by his . Patient reported that he feels extremely tired yesterday. Today he feels a little bit better. No headache. No fever and no chills. No bleeding and no petechiae. Patient said that the have looked into the home hospice care. And the patient himself is determined that he would like to go into hospice. He does not want to delay further receiving blood transfusion or any other treatments. During his previous visit , I recommended trying treatment with Vidaza. However patient decided that he does not want any active treatment at this moment. ONOCLOGY HISTORY This is a 76-year-old gentleman with prolonged history of essential thrombocytosis. Recently he developed pancytopenia. 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 Therefore patient was referred to [facility] for evaluation and management. And on October 29, 2017, patient went back to [facility] again for further discussion. Patient reported that Dr. Hardy talked with him about multiple options including intensive [facility] as an [facility] Patient told me that he has thought about it carefully and he decided he does not want to proceed with the chemotherapy. He would like to proceed with palliative care locally. While at [facility] patient has significant fatigue. Patient said he was basically exhausted and just wiped out. He thought that might be related to the underlying acute myeloid leukemia as well as the traveling from [place] to [place]. At [facility] patient received a blood transfusion and patient said that he had felt great after the blood transfusion. Today he was able to walk into the clinic. In addition at the [facility] patient also was given ranitidine for apparent acid reflux. That also has relieved much of the abdominal pain symptoms and patient is very satisfied. - Patient Self-Reported Symptoms SR Constitution: Fatigue/Malaise SR ears, nose, mouth, throat issues: Mouth sores SR respiratory issues: Shortness of breath SR Cardiovascular issues: Shortness of breath with activity or lying flat, Extreme swelling, Dizzy/lightheaded SR Gastrointestinal issues: Poor or no appetite - Additional ROS All systems PM: reviewed and no additional remarkable complaints except as stated Home Medications and Allergies Home Medications Medication Instructions Recorded Confirmed Type acetaminophen 650 mg PO Q8HP #0 10/07/16 11/22/17 History furosemide 20 mg PO Q DAY #90 tab 06/10/17 11/22/17 Rx clonazepam 1 mg tablet 1 mg PO HS #90 tab 07/08/17 11/22/17 Rx carvedilol [Coreg] 25 mg PO BID #180 tab 10/04/17 11/22/17 Rx amlodipine 5 mg PO DAILY 11/04/17 11/22/17 History levofloxacin [Levaquin] 500 mg PO DAILY 11/11/17 11/22/17 History ranitidine HCl 150 mg PO DAILY 11/11/17 11/22/17 History Allergies Allergy/AdvReac Type Severity Reaction Status Date / Time oxycodone [OXYCODONE] Allergy Unknown HALLUCINATI Verified 10/13/17 10:22 ONS tramadol [TRAMADOL] Allergy Unknown Verified 10/13/17 10:22 Exam Vital signs: Last Vital Signs Temp 98.0 F 11/22/17 11:16 Pulse 70 11/22/17 11:16 Resp 16 11/22/17 11:16 BP 120/58 L 11/22/17 11:16 Pulse Ox 98 11/22/17 11:16 - Constitutional positive no acute distress, positive chronically ill appearing, positive cooperative - Routine HEENT Exam Head: Present: normocephalic, atraumatic Eye: Present: EOMI, PERRL - Routine Neck Exam Present: supple. Absent: lymphadenopathy, thyromegaly - Routine Respiratory Exam Present: decreased breath sounds - Routine Cardiovascular Exam Present: RRR, S1, S2. Absent: murmur, gallop - Routine Abdominal Exam Present: soft, normoactive bowel sounds. Absent: organomegaly - Routine Neurological Exam Present: alert, oriented X3, CN II-XII intact. Absent: sensory deficit, motor deficit - Routine Psychiatric Exam Present: normal affect, normal thought process, cooperative, good insight, good judgment Results - Labs Laboratory Last Values WBC 5.6 X10^3/uL (4.5-11.0) 11/22/17 11:07 RBC 2.50 X10^6/uL (4.5-5.9) L 11/22/17 11:07 Hgb 9.0 g/dL (13.5-17.5) L 11/22/17 11:07 Hct 25.3 % (41-53) L 11/22/17 11:07 MCV 100.9 fL (80-100) H 11/22/17 11:07 MCH 36.0 PG (26-34) H 11/22/17 11:07 MCHC 35.7 % (30-36) 11/22/17 11:07 RDW 19.7 % (11.6-14.8) H 11/22/17 11:07 Plt Count 16 X10^3/uL (150-400) L* 11/22/17 11:07 Neut % (Auto) Not Reportable 11/22/17 11:07 Lymph % (Auto) Not Reportable 11/22/17 11:07 [place] % (Auto) Not Reportable 11/22/17 11:07 Eos % (Auto) Not Reportable 11/22/17 11:07 Baso % (Auto) Not Reportable 11/22/17 11:07 Total Counted 100 11/17/17 10:11 Seg Neutrophils % 2.0 % (38-70) L 11/17/17 10:11 Lymphocytes % (Manual) 79.0 % (25-45) H 11/17/17 10:11 Atypical Lymphs % 14.0 % (-0) H 11/11/17 10:34 Monocytes % (Manual) 2.0 % (2-11) 11/17/17 10:11 Eosinophils % (Manual) 2.0 % (2-4) 11/17/17 10:11 Metamyelocytes % 7.0 % (-0) H 11/17/17 10:11 Promyelocytes % 8.0 % (-0) H 11/17/17 10:11 Blast Cells % 9.0 % (-0) H 11/11/17 10:34 Neutrophils # (Manual) 70 /uL (2014-2318) L 11/17/17 10:11 Nucleated RBCs 1 #/Diff (-0) H 10/25/17 14:21 Smudge Cells 1+ H 10/25/17 14:21 RBC Morphology Not Reportable 11/17/17 10:11 Hypochromasia 2+ H 11/17/17 10:11 Poikilocytosis [employer] 11/11/17 10:34 Anisocytosis 2+ H 11/17/17 10:11 Macrocytosis 1+ H 11/11/17 10:34 Smear Path Review 11/11/17 10:34 Sodium 144 mmol/L (137-145) 11/22/17 11:07 Potassium 3.9 mmol/L (3.4-5.1) 11/22/17 11:07 Chloride 108 mmol/L (98-107) H 11/22/17 11:07 Carbon Dioxide 28 mmol/L (22-32) 11/22/17 11:07 BUN 18 mg/dL (9-20) 11/22/17 11:07 Creatinine 1.40 mg/dL (0.66-1.25) H 11/22/17 11:07 Estimated GFR 49.3 mL/min (>60) L 11/22/17 11:07 BUN/Creatinine Ratio 12.9 (6-22) 11/22/17 11:07 Glucose 105 mg/dL (80-110) 11/22/17 11:07 Uric Acid 7.9 mg/dL (3.5-8.5) 11/11/17 10:34 Calcium 8.9 mg/dL (8.4-10.2) 11/22/17 11:07 Total Bilirubin 0.6 mg/dL (0.2-1.3) 11/22/17 11:07 AST 33 IU/L (17-59) 11/22/17 11:07 ALT 71 IU/L (21-72) 11/22/17 11:07 Alkaline Phosphatase 195 U/L (38-126) H 11/22/17 11:07 Total Protein 6.7 g/dL (6.3-8.2) 11/22/17 11:07 Albumin 3.9 g/dL (3.5-5.0) 11/22/17 11:07 Globulin 2.8 g/dL (1.7-4.1) 11/22/17 11:07 Albumin/Globulin Ratio 1.4 (1.0-2.8) 11/22/17 11:07 Blood Type A Negative 11/17/17 10:30 Antibody Screen Negative 11/11/17 11:04 Crossmatch See Detail 11/11/17 11:04 - Imaging Additional studies: Procedures Non-invasive mechanical ventilation (08/22/14) Assessment and Plan (1) Acute myeloid leukemia Current visit: Yes Status: Acute (2) Pancytopenia Current visit: Yes Status: Acute (3) Essential thrombocythemia Onset Date: 12/03/15 Current visit: Yes Status: Resolved It has transformed into AML. See above. - Time Spent with Patient Spent at least 25 min counseling and coordinating of the care. Patient and patient's were present. Patient himself said that he has determined that he does not want any more active treatment. He does not even want platelet transfusion today. [place] [id number] today. I explained to them that I support his decision. However I think with supportive care for example platelet transfusion we may be able to prevent catastrophic bleeding to happen. However patient said that by doing platelet transfusion, it simply pre vent him from moving forward into hospice care. And he refuses platelet transfusion. And I also talked with him about possible disease progress within the next weeks to months. I talked with him it is likely that acute myeloid leukemia patient will acquire severe infections including bacteria viral and or fungal infections. Patient will likely have severe sepsis. Bleeding also can happen. Patient was asking about end of life morphine infusion. Talked with them that I will leave that to hospice care physician to make decisions about morphine infusion. Patient voiced understanding. I will order the hospice care. I talked with the patient if they need any help, the can call us.
[2017-11-22 12:32] LABS: Neutrophils Absolute Manual 112 /uL (3000-5900); Nucleated Red Blood Cells 1 #/Diff; Total Cells Counted 100
[2017-11-22 12:34] LABS: Anisocytosis 2+; Morphology Comment IMMATURE MONOS SEENA; Platelet Estimate Decreased on smear
== END 2017-11-23 12:00 | disposition home or self-care (01) ==
PROVIDERS: Family Provider Internal Medicine; PCP Family Medicine; Visit Provider Internal Medicine Hematology & Oncology
DX: C92.00 Acute myeloblastic leukemia, not having achieved remission (principal); D61.818 Other pancytopenia; D69.3 Immune thrombocytopenic purpura
CPT/HCPCS: 36415; 36430; 36569; 36591; 36592; 38220; 77001; 80053; 84550; 85025; 86850; 86900; 86901; 99000; 99214; 99215; P9016; P9035

== ENCOUNTER → 2017-11-27 12:39 | Outpatient (CLI) | payer OTHER, MEDICARE, SELFPAY ==
[2017-11-27] VITALS (7 sets, daily range): BP systolic 106–121; BP diastolic 53–81; PULSE 69–79; RESP 16–18; TEMP 36.6–37.1; O2SAT 95
--- NOTE | 2017-11-27 14:17 | PC.NURSE ---
Addendum entered by Jaci Gaitan R.N. 11/27/17 20:41: PRBC transfusion completed @ 2034. Pt states feels stronger. and son up to take patient home, pushed in wheelchair to transportation. Pt tolerated transfusion well. Original Note: Assisting float/transfusion nurse with patient. Patient resting in bed comfortably. PICC line in place to left upper arm, able to draw labs to prep for blood transfusion and flush without difficulty. Patient has call light within reach, instructed to call for assistance with getting up. Patient denies needs. Awaiting type and screen results and availability of 2 units of blood.
[2017-11-27] MEDS: diphenhydrAMINE 25 MG TABLET PO (14:55)
[2017-11-27] MEDS: ACETAMINOPHEN 325 MG TABLET 650 MG PO ×2 (15:14→18:30)
== END ==
PROVIDERS: Family Provider Internal Medicine; PCP Family Medicine; Visit Provider Family Medicine
DX: C92.00 Acute myeloblastic leukemia, not having achieved remission (principal); D61.818 Other pancytopenia
CPT/HCPCS: 36430; 86850; 86900; 86901; P9016